=== PATIENT | female | born 1960 | race Caucasian/White ===

== ENCOUNTER 2020-09-17 08:02 | Outpatient (REF) | payer MEDICARE, SELFPAY ==
[2020-09-17 09:56] LABS: Folate 14.2 ng/mL (> or = 4.0); Vitamin B12 353 pg/mL (200-900)
[2020-09-17 10:32] LABS: Ferritin 24 ng/mL (10-250); Vitamin D 25-OH Total 20.8 ng/mL (>30)
[2020-09-18 17:32] LABS: Immunoglobulin A 291 mg/dL (70-320)
[2020-09-18 21:47] LABS: Transglutaminase Ab IgG 4 U/mL; Transglutaminase IgA 1 U/mL
[2020-09-19 05:26] LABS: Gliadin Deamidated IgA Ab 5 Units; Gliadin Deamidated IgG Ab 8 Units
[2020-09-21 12:21] LABS: Endomysial IgA Antibody Negative (Negative)
== END 2020-09-17 08:03 | disposition home or self-care (01) ==
LOC: HO.LAB 08:02
PROVIDERS: PCP Family Medicine; Visit Provider Physician Assistant
DX: K74.60 Unspecified cirrhosis of liver (principal)
CPT/HCPCS: 36415; 82306; 82607; 82728; 82746; 82784; 83516; 86255; 86256

== ENCOUNTER → 2020-09-18 14:06 | Outpatient (BNVA) | payer MEDICARE, SELFPAY | PROVIDERS: Visit Provider Physician Assistant | DX: K74.60 Unspecified cirrhosis of liver (principal) | CPT/HCPCS: 99212 ==

== ENCOUNTER → 2020-10-03 10:17 | Outpatient (BNVA) | payer MEDICARE, SELFPAY | PROVIDERS: PCP Family Medicine; Referring Provider Family Medicine; Visit Provider Physician Assistant | DX: K76.0 Fatty (change of) liver, not elsewhere classified (principal); K74.60 Unspecified cirrhosis of liver; Z79.899 Other long term (current) drug therapy; Z98.84 Bariatric surgery status | CPT/HCPCS: 99212 ==

== ENCOUNTER 2021-01-30 07:55 | Outpatient (REF) | payer OTHER, SELFPAY ==
--- NOTE | ~2021-01-30 | US_ITS ---
EXAMINATION: US ABDOMEN LIMITED WITH LIVER ELASTOGRAPHY CLINICAL INFORMATION: Fatty change of liver. COMPARISON: None. TECHNIQUE: Real-time imaging of the abdominal viscera. Noninvasive ultrasound liver fibrosis assessment is performed using Jon ElastPQ point quantification shear wave elastography (pSWE) with a C5-2 MHz transducer. Multiple elastography samples are obtained. FINDINGS: PANCREAS: Most of the pancreas is obscured by overlying gas. LIVER: The liver demonstrates normal size, contour and coarse echogenicity. No focal lesion or intrahepatic biliary duct dilatation. The right lobe measures 15.1 cm in length. The left lobe measures 8.3 cm in length. Portal flow is hepatopedal. Shear wave liver elastography median stiffness is 1.52 m/s (reference: normal median stiffness is 1.3 m/s or less). IQR/median stiffness to assess sampling precision is 0.13 (reference: good quality data set is IQR/median stiffness of 0.15 or less). GALLBLADDER: Normal. The gallbladder is physiologically distended without evidence of stones, sludge, polyps, wall thickening or pericholecystic fluid. COMMON BILE DUCT: Normal in caliber measuring 0.5 cm in diameter. RIGHT KIDNEY: There is a parapelvic right renal cyst measuring 1.4 x 1.6 x 1.2 cm. No renal calculi or focal parenchymal lesions. The kidney measures 9.8 cm in maximum dimension. FREE FLUID: None. US/US abdomen edwards w elastography IMPRESSION: 1. Coarse echogenic liver without hepatomegaly. 2. Liver elastography: Median stiffness 1.52 cACLD ruled out. REFERENCE: Society of Radiologists in Ultrasound Liver Stiffness Thresholds (2020): LIVER STIFFNESS THRESHOLDS: *Liver Stiffness equal or less than 1.3 m/s: High probability of being normal. *Liver Stiffness less than 1.7 m/s: In the absence of other known clinical signs, rules out compensated advanced chronic liver disease. *Liver Stiffness 1.7-2.1 m/s: Suggestive of compensated advanced chronic liver disease but need further test for confirmation. *Liver Stiffness over 2.1 m/s: Rules in compensated advanced chronic liver disease. *Liver Stiffness over 2.4 m/s: Suggestive of clinically significant portal hypertension. QUALITY OF DATA SET: *IQR/Median value equal or less than 0.15 implies a quality data set. *IQR/Median value over 0.15 implies a poor quality data set. SIGNIFICANT CHANGE FROM PRIOR EXAM: Significant change if liver stiffness measurement is 10% or greater from prior exam. OTHER CONSIDERATIONS: The stage of liver fibrosis may be overestimated in the setting of acute hepatitis, liver inflammation, elevated liver function tests, hepatic vascular congestion, obstructive cholestasis, non-fasting state, and infiltrative diseases such as amyloidosis and lymphoma. In some patients with NAFLD, the liver stiffness thresholds for compensated advanced chronic liver disease may be lower. In causes other than viral hepatitis and NAFLD, liver stiffness thresholds are not well established.
== END 2021-01-30 07:56 | disposition home or self-care (01) ==
LOC: HO.US 07:55
PROVIDERS: Visit Provider Physician Assistant
DX: K76.0 Fatty (change of) liver, not elsewhere classified (principal)
CPT/HCPCS: 76705; 76981

== ENCOUNTER → 2021-02-12 09:16 | Outpatient (BNVA) | payer OTHER, SELFPAY | PROVIDERS: PCP Family Medicine; Visit Provider Physician Assistant | DX: Z13.89 Encounter for screening for other disorder (principal) | CPT/HCPCS: Q3014 ==

== ENCOUNTER 2021-05-15 11:43 | Day surgery (SDC) | payer OTHER, SELFPAY ==
--- NOTE | 2021-05-14 10:40 | HO.ANESPROP2 ---
Documented by User: Chana Lr 05/14/21 10:42 HPI - Anesthesia Eval Consult details Narrative: 61yo F for Upper Endoscopy PMFSH Active Problems Active Problems: All Active Problems (Updated 02/12/21 @ 11:29 by Radha Carias PA-C) Iron deficiency (Acute) Acid reflux (Acute) HTN (hypertension) (Acute) Cirrhosis (Acute) Diabetes (Acute) Fatty liver (Acute) Past Medical History Medical History (Updated 05/14/21 @ 10:40 by Chana Lr) Acid reflux Cirrhosis Diabetes Fatty liver HTN (hypertension) Iron deficiency Family History Family History Mother Diabetes COPD (chronic obstructive pulmonary disease) Heart disease Brother Stroke Father Cancer Surgical History Surgical History H/O bariatric surgery History of cholecystectomy Social History Social History Household Members: Children Alcohol intake: former Patient Tobacco Use Status: Former Tobacco user Use of substances other than those prescribed or required for medical reasons: No Have you been hit, kicked, punched, or otherwise hurt by someone within the past year? If so, by whom?: No Are you DNR?: No Advance Directives: No Advance Directives Information Provided: Yes Current occupational status: disabled Meds Allergies Allergy/AdvReac Type Severity Reaction Status Date / Time acetaminophen [Tylenol] AdvReac Unknown nausea and Verified 02/12/21 09:17 vomiting naproxen [Aleve] AdvReac Unknown stomach Verified 02/12/21 09:17 upset Motrin Allergy Unknown swelling Uncoded 02/12/21 09:17 Home Medications Medication Instructions Recorded Confirmed Last Taken Type aspirin 81 mg tablet,delayed 81 mg PO DAILY 09/18/20 02/12/21 Unknown History release atorvastatin 20 mg tablet 20 mg PO DAILY 09/18/20 02/12/21 Unknown History chlorthalidone 25 mg tablet 25 mg PO DAILY 09/18/20 02/12/21 Unknown History fluticasone propionate 110 1 puff INHALATION BID 09/18/20 02/12/21 Unknown History mcg/actuation HFA aerosol inhaler levothyroxine 88 mcg tablet 88 mcg PO DAILY 09/18/20 02/12/21 Unknown History loratadine 10 mg tablet 10 mg PO DAILY 09/18/20 02/12/21 Unknown History losartan 100 mg tablet 100 mg PO DAILY 09/18/20 02/12/21 Unknown History metformin 1,000 mg tablet 1,000 mg PO DAILY 09/18/20 02/12/21 Unknown History sertraline 100 mg tablet 100 mg PO DAILY 09/18/20 02/12/21 Unknown History omeprazole 20 mg capsule,delayed 20 mg PO DAILY 10/03/20 02/12/21 Unknown History release albuterol sulfate 90 mcg/actuation 2 puff INHALATION Q6H PRN 02/12/21 02/12/21 Unknown History aerosol inhaler benztropine 0.5 mg tablet 0.5 mg PO BEDTIME tab 02/12/21 02/12/21 Unknown History bupropion HCl 75 mg tablet 75 mg PO .qmorning tab 02/12/21 02/12/21 Unknown History ferrous fumarate 325 mg (106 mg 325 mg PO DAILY 02/12/21 02/12/21 Unknown History iron) tablet insulin aspart U-100 100 unit/mL 5 unit SUBCUT DAILY PRN ml 02/12/21 02/12/21 Unknown History subcutaneous cartridge insulin glargine 100 unit/mL 20 unit SUBCUT QAM ml 02/12/21 02/12/21 Unknown History subcutaneous solution melatonin 5 mg capsule mg PO BEDTIME cap 02/12/21 02/12/21 Unknown History mirtazapine 45 mg tablet 45 mg PO BEDTIME 02/12/21 02/12/21 Unknown History ziprasidone HCl 20 mg capsule 20 mg PO QAM cap 02/12/21 02/12/21 Unknown History ziprasidone HCl 80 mg capsule 80 mg PO BEDTIME cap 02/12/21 02/12/21 Unknown History Exam Exam Date and Time: May 14, 2021 1040 Assessment and Plan Assessment Anesthesia Assessment: Chart Reviewed Documented by User: Kathleen Forresterjoaquim 05/15/21 14:18 [facility] Past Medical History Medical History (Updated 05/14/21 @ 10:40 by Chana Lr) Acid reflux Cirrhosis Diabetes Fatty liver HTN (hypertension) Iron deficiency Family History Family History Mother Diabetes COPD (chronic obstructive pulmonary disease) Heart disease Brother Stroke Father Cancer Surgical History Surgical History H/O bariatric surgery History of cholecystectomy Social History Social History Household Members: Children Alcohol intake: former Patient Tobacco Use Status: Former Tobacco user Use of substances other than those prescribed or required for medical reasons: No Have you been hit, kicked, punched, or otherwise hurt by someone within the past year? If so, by whom?: No Are you DNR?: No Advance Directives: No Advance Directives Information Provided: Yes Current occupational status: disabled Meds Allergies Allergy/AdvReac Type Severity Reaction Status Date / Time acetaminophen [Tylenol] AdvReac Unknown nausea and Verified 02/12/21 09:17 vomiting naproxen [Aleve] AdvReac Unknown stomach Verified 02/12/21 09:17 upset Motrin Allergy Unknown swelling Uncoded 02/12/21 09:17 Home Medications Medication Instructions Recorded Confirmed Last Taken Type aspirin 81 mg tablet,delayed 81 mg PO DAILY 09/18/20 02/12/21 Unknown History release atorvastatin 20 mg tablet 20 mg PO DAILY 09/18/20 02/12/21 Unknown History chlorthalidone 25 mg tablet 25 mg PO DAILY 09/18/20 02/12/21 Unknown History fluticasone propionate 110 1 puff INHALATION BID 09/18/20 02/12/21 Unknown History mcg/actuation HFA aerosol inhaler levothyroxine 88 mcg tablet 88 mcg PO DAILY 09/18/20 02/12/21 Unknown History loratadine 10 mg tablet 10 mg PO DAILY 09/18/20 02/12/21 Unknown History losartan 100 mg tablet 100 mg PO DAILY 09/18/20 02/12/21 Unknown History metformin 1,000 mg tablet 1,000 mg PO DAILY 09/18/20 02/12/21 Unknown History sertraline 100 mg tablet 100 mg PO DAILY 09/18/20 02/12/21 Unknown History omeprazole 20 mg capsule,delayed 20 mg PO DAILY 10/03/20 02/12/21 Unknown History release albuterol sulfate 90 mcg/actuation 2 puff INHALATION Q6H PRN 02/12/21 02/12/21 Unknown History aerosol inhaler benztropine 0.5 mg tablet 0.5 mg PO BEDTIME tab 02/12/21 02/12/21 Unknown History bupropion HCl 75 mg tablet 75 mg PO .qmorning tab 02/12/21 02/12/21 Unknown History ferrous fumarate 325 mg (106 mg 325 mg PO DAILY 02/12/21 02/12/21 Unknown History iron) tablet insulin aspart U-100 100 unit/mL 5 unit SUBCUT DAILY PRN ml 02/12/21 02/12/21 Unknown History subcutaneous cartridge insulin glargine 100 unit/mL 20 unit SUBCUT QAM ml 02/12/21 02/12/21 Unknown History subcutaneous solution melatonin 5 mg capsule mg PO BEDTIME cap 02/12/21 02/12/21 Unknown History mirtazapine 45 mg tablet 45 mg PO BEDTIME 02/12/21 02/12/21 Unknown History ziprasidone HCl 20 mg capsule 20 mg PO QAM cap 02/12/21 02/12/21 Unknown History ziprasidone HCl 80 mg capsule 80 mg PO BEDTIME cap 02/12/21 02/12/21 Unknown History Exam Airway Mallampati Class: II TM Dist: >3cm Neck ROM: Full Denture: Upper and Lower Heart: rrr Lungs: cta Assessment and Plan Assessment Anesthesia Assessment: Anesthesia Plan Discussed and Chart Reviewed Final Anesthetic Review NPO: Yes ASA Class: III Final Preanesthetic Review: No Changes in Pt Med Stat and Consent Obtained/Reviewed Patient Risk: Intermediate Procedure Risk: Intermediate Anesthetic Plan Anesthetic Plan: MAC: Disposition: Standard PACU
[2021-05-15 12:15] LABS: MANUAL DIFF FLAG NO
[2021-05-15 12:20] LABS: Basophils Percent Auto 0.5 % (0-2); Eosinophils Absolute Auto 0.5 X10*3/uL (0.0-0.4); Eosinophils Percent Auto 9.5 % (0-4); Hematocrit 36.2 % (37-47); Hemoglobin 11.4 g/dl (12.0-16.0); Imm Gran Abs Auto 0.01 X10*3/uL (0.00-0.03); Imm Gran Pct Auto 0.2 % (0.0-0.4); Lymphocytes Absolute Auto 1.4 X10*3/uL (1.2-4.9); Lymphocytes Percent Auto 25.4 % (20-40); Mean Corpuscular HGB Conc 31.5 g/dl (31.0-35.0); Mean Corpuscular Volume 79.4 fL (80-98); Mean Platelet Volume 9.7 fL (9.4-12.3); Monocytes Absolute Auto 0.3 X10*3/uL (0.1-1.2); Monocytes Percent Auto 5.8 % (2-11); Neutrophils Absolute Auto 3.2 X10*3/uL (2.0-8.3); Neutrophils Percent Auto 58.6 % (45-73); Platelet Count 148 X10*3/uL (160-400); Red Blood Count 4.56 X10*6/uL (4.20-5.50); Red Cell Distribution Width 15.3 % (11.0-16.0); White Blood Count 5.5 X10*3/uL (4.8-10.8)
[2021-05-15 12:23] LABS: Glucose, Whole Blood 110 mg/dL (60-115)
[2021-05-15 12:29] VITALS: BP 140/84; PULSE 76; RESP 18; TEMP 36.7; O2SAT 97; BMI 44.4
[2021-05-15 12:58] LABS: Alanine Aminotransferase 10 U/L (0-31); Alkaline Phosphatase 97 U/L (39-117); Anion Gap 10 (12-20); Aspartate Amino Transferase 18 U/L (5-31); Bilirubin Total 0.5 mg/dL (0.0-1.0); Blood Urea Nitrogen 16 mg/dL (9-16); Calcium 9.4 mg/dL (8.4-10.2); Carbon Dioxide 30 mmol/L (22-29); Chloride 105 mmol/L (96-108); Creatinine Clr Calc Pharmacy 51.8; Estimated Glomerular Filt Rate 47; Glucose Random 122 mg/dL (60-115); Iron 50 mcg/dL (30-160); Percent Iron Saturation 12 % (15-50); Sodium 141 mmol/L (135-145); Total Iron Binding Capacity 415 mcg/dL (228-428); Unsaturated Iron Binding 365 ug/dL
[2021-05-15] MEDS: Lactated Ringers 1,000 ML 100 ML IVCONT (13:07)
[2021-05-15 13:22] LABS: Ferritin 14 ng/mL (10-250)
--- NOTE | 2021-05-15 13:44 | MHC.SHP ---
Pre-Procedural Eval Section B Chief Complaint: reflux disease,r10.11,d64.9,e61.1,r74.01 Relevant Family History (Specify if Yes): No Relevant Social History: None Present Medications: see Short Stay Collaborative assessment Medical History: Significant History (Acid reflux Cirrhosis Diabetes Fatty liver HTN (hypertension) Iron deficiency) History of Previous Operations: Relevant previous surgery/procedure and date(s) (cholecystectomy, bariatric surgery) Allergies: Allergies Allergy/AdvReac Type Severity Reaction Status Date / Time acetaminophen [Tylenol] AdvReac Unknown nausea and Verified 02/12/21 09:17 vomiting naproxen [Aleve] AdvReac Unknown stomach Verified 02/12/21 09:17 upset Motrin Allergy Unknown swelling Uncoded 02/12/21 09:17 Review of Systems Sugical H&P ROS: Negative: Constitution, Cardiovascular, Respiratory, Neurological, Psychiatric, Hem-Onc, Allergic/Immunologic, Gastrointestinal, Genitourinary, Musculoskeletal, Integumentary, Endocrine and Eyes/Ears/Nose/Throat Exam Surgical H&P Exam: Normal: HEENT, Normal: Heart, Normal: Lungs, Normal: Extremities, Normal: Abdomen, Normal: Skin and Normal: Neurological Plan Diagnosis/Plan: Unchanged I have reviewed the history and physical and performed a pertinent physical examination on my patient. No changes have occurred unless specified.
--- NOTE | 2021-05-15 14:10 | PM.OP ---
Brief Operative Note Date of Service: 05/15/21 Pre-op diagnosis: anemia, hx of gastric sleeve Post-op diagnosis: same Procedure: see op note Surgeon: Tien Robert MD Anesthesia: MAC Was an Fruit And Vegetable Packer used for this Procedure?: No Estimated blood loss (mL): 0 Condition: stable Disposition: PACU
--- NOTE | 2021-05-15 14:10 | W.PM.OPN ---
Operative Note Operative Note Date of Service: 05/15/21 Narrative: Procedure Description: EGD FLEXIBLE TRANSORAL UPPER GASTROINTESTINAL ENDOSCOPY UPPER ENDOSCOPY Consent: Indications for the procedure and potential complications of bleeding, perforation, reaction to medications and missed diagnosis were discussed with the patient and informed consent was obtained. Instrument: Olympus GIF H 190 J mid size upper endoscope Monitoring: Vital signs and clinical assessment, continuous EKG monitoring, Pulse oximetry, Carbon Dioxide monitoring and blood pressure monitoring were done throughout the procedure. Procedure: The patient was placed in the left lateral decubitis position and pre-procedure medications were administered and a bite block was placed. The endoscope was inserted into the mouth and advanced under direct vision to the third part of duodenum. A careful inspection was made as the upper endoscope was withdrawn including a retroflexed examination of the proximal stomach; Findings and interventions are described below. Findings: Larynx:normal Esophagus: GE junction at 32 cm, diaphragm hiatus at 35 cm, no varices seen, non obstructive schatzki ring seen, 3 cm sliding hiatal hernia noted. Stomach: streaky gastric erythema at antrum. Biopsies were obtained. Grade 2 flap valve on retroflexed examination of the cardia. Stomach was elongated with slight narrowing in the distal part. Duodenum: Normal bulb and descending duodenum, bx taken Intervention: Biopsies as noted above Impression/Findings: schatzki ring hiatal hernia gastritis s/p sleeve gastrectomy PLAN: GERd precautions may benefit from PPi if not taking or increasing the dose recommend colonoscopy for anemia work up but she declines this
[2021-05-15 14:43] VITALS: BP 131/74; PULSE 92; RESP 16; TEMP 36; O2SAT 94
[2021-05-15 14:58] VITALS: BP 140/73; PULSE 83; RESP 13; O2SAT 97
--- NOTE | 2021-05-15 14:59 | P.CONAN_ITS ---
[facility] Active Problems Active Problems: All Active Problems (Updated 05/14/21 @ 10:40 by Chana herrera) Iron deficiency (Acute) Acid reflux (Acute) HTN (hypertension) (Acute) Cirrhosis (Acute) Diabetes (Acute) Fatty liver (Acute) Past Medical History Medical History (Updated 05/14/21 @ 10:40 by Chana Lr) Acid reflux Cirrhosis Diabetes Fatty liver HTN (hypertension) Iron deficiency Family History Family History Mother Diabetes COPD (chronic obstructive pulmonary disease) Heart disease Brother Stroke Father Cancer Surgical History Surgical History H/O bariatric surgery History of cholecystectomy Social History Social History Household Members: Children Alcohol intake: former Patient Tobacco Use Status: Former Tobacco user Use of substances other than those prescribed or required for medical reasons: No Have you been hit, kicked, punched, or otherwise hurt by someone within the past year? If so, by whom?: No Are you DNR?: No Advance Directives: No Advance Directives Information Provided: Yes Current occupational status: disabled Meds Allergies Allergy/AdvReac Type Severity Reaction Status Date / Time acetaminophen [Tylenol] AdvReac Unknown nausea and Verified 02/12/21 09:17 vomiting naproxen [Aleve] AdvReac Unknown stomach Verified 02/12/21 09:17 upset Motrin Allergy Unknown swelling Uncoded 02/12/21 09:17 Active Medications: Current Medications Generic Name Dose Route Start Last Admin Trade Name Freq PRN Reason Stop Dose Admin Lactated Ringer's 1,000 mls @ 100 mls/hr 05/15/21 12:15 05/15/21 13:07 Lr IVCONT 100 mls/hr .Q10H [place] Administration Home Medications Medication Instructions Recorded Confirmed Last Taken Type aspirin 81 mg tablet,delayed 81 mg PO DAILY 09/18/20 02/12/21 Unknown History release atorvastatin 20 mg tablet 20 mg PO DAILY 09/18/20 02/12/21 Unknown History chlorthalidone 25 mg tablet 25 mg PO DAILY 09/18/20 02/12/21 Unknown History fluticasone propionate 110 1 puff INHALATION BID 09/18/20 02/12/21 Unknown History mcg/actuation HFA aerosol inhaler levothyroxine 88 mcg tablet 88 mcg PO DAILY 09/18/20 02/12/21 Unknown History loratadine 10 mg tablet 10 mg PO DAILY 09/18/20 02/12/21 Unknown History losartan 100 mg tablet 100 mg PO DAILY 09/18/20 02/12/21 Unknown History metformin 1,000 mg tablet 1,000 mg PO DAILY 09/18/20 02/12/21 Unknown History sertraline 100 mg tablet 100 mg PO DAILY 09/18/20 02/12/21 Unknown History omeprazole 20 mg capsule,delayed 20 mg PO DAILY 10/03/20 02/12/21 Unknown History release albuterol sulfate 90 mcg/actuation 2 puff INHALATION Q6H PRN 02/12/21 02/12/21 Unknown History aerosol inhaler benztropine 0.5 mg tablet 0.5 mg PO BEDTIME tab 02/12/21 02/12/21 Unknown History bupropion HCl 75 mg tablet 75 mg PO .qmorning tab 02/12/21 02/12/21 Unknown History ferrous fumarate 325 mg (106 mg 325 mg PO DAILY 02/12/21 02/12/21 Unknown History iron) tablet insulin aspart U-100 100 unit/mL 5 unit SUBCUT DAILY PRN ml 02/12/21 02/12/21 Unknown History subcutaneous cartridge insulin glargine 100 unit/mL 20 unit SUBCUT QAM ml 02/12/21 02/12/21 Unknown History subcutaneous solution melatonin 5 mg capsule mg PO BEDTIME cap 02/12/21 02/12/21 Unknown History mirtazapine 45 mg tablet 45 mg PO BEDTIME 02/12/21 02/12/21 Unknown History ziprasidone HCl 20 mg capsule 20 mg PO QAM cap 02/12/21 02/12/21 Unknown History ziprasidone HCl 80 mg capsule 80 mg PO BEDTIME cap 02/12/21 02/12/21 Unknown History Exam Exam Date and Time: May 15, 2021 492 Height,Weight and Vital Signs: Height 4 ft 11 in Weight 99.79 kg Last Vital Signs Temp 98.1 F 05/15/21 12:29 Pulse 76 05/15/21 12:29 Resp 18 05/15/21 12:29 BP 140/84 H 05/15/21 12:29 Pulse Ox 97 05/15/21 12:29 Pertinent Lab Results Pertinent Lab Results: Laboratory Tests 05/15/21 05/15/21 05/15/21 11:33 11:33 12:17 WBC 5.5 RBC 4.56 Hgb 11.4 L Hct 36.2 L MCV 79.4 L MCH 25.0 L MCHC 31.5 RDW 15.3 Plt Count 148 L MPV 9.7 Immature Gran % (Auto) 0.2 Neut % (Auto) 58.6 Lymph % (Auto) 25.4 Nye % (Auto) 5.8 Eos % (Auto) 9.5 H Baso % (Auto) 0.5 Lymph # (Auto) 1.4 Nye # (Auto) 0.3 Eos # (Auto) 0.5 H Baso # (Auto) 0.0 Abs Immat Gran (auto) 0.01 Absolute Neuts (auto) 3.2 Absolute Nucleated RBC 0.000 Nucleated RBC % (auto) 0.0 Sodium 141 Potassium 4.0 Chloride 105 Carbon Dioxide 30 H Anion Gap 10 L BUN 16 Creatinine 1.17 Estim Creat Clear Calc 51.8 Estimated GFR 47 POC Glucose 110 Random Glucose 122 H Calcium 9.4 Iron 50 TIBC 415 % Saturation 12 L Unsat Iron Binding 365 Ferritin 14 Total Bilirubin 0.5 AST 18 ALT 10 Alkaline Phosphatase 97 Total Protein 7.0 Albumin 4.0 Airway Mallampati Class: II (No teeth) TM Dist: >3cm Neck ROM: Full Heart: rrr Lungs: cta Assessment and Plan Assessment Anesthesia Assessment: Anesthesia Plan Discussed and Chart Reviewed Final Anesthetic Review NPO: Yes ASA Class: III Final Preanesthetic Review: No Changes in Pt Med Stat and Consent Obtained/Reviewed Patient Risk: Intermediate Procedure Risk: Intermediate Anesthetic Plan Anesthetic Plan: MAC: Disposition: Standard PACU
[2021-05-15 15:08] VITALS: BP 138/79; PULSE 81; RESP 13; TEMP 36; O2SAT 97
== END 2021-05-15 16:16 | disposition home or self-care (01) ==
PROVIDERS: Absent Provider Physician Assistant; PCP Family Medicine; Visit Provider Internal Medicine Gastroenterology
PROC: 0DJ08ZZ Inspection of Upper Intestinal Tract, Via Natural or Artificial Opening Endoscopic (ICD-10-PCS; CPT 43235; principal; 2021-05-15 14:30)
DX: D64.9 Anemia, unspecified (principal); K21.9 Gastro-esophageal reflux disease without esophagitis; E61.1 Iron deficiency; K29.50 Unspecified chronic gastritis without bleeding; K22.2 Esophageal obstruction; K44.9 Diaphragmatic hernia without obstruction or gangrene; K74.60 Unspecified cirrhosis of liver; K76.0 Fatty (change of) liver, not elsewhere classified; Z98.84 Bariatric surgery status; I10 Essential (primary) hypertension; E11.9 Type 2 diabetes mellitus without complications; Z90.49 Acquired absence of other specified parts of digestive tract; Z87.891 Personal history of nicotine dependence; Z79.4 Long term (current) use of insulin; Z79.899 Other long term (current) drug therapy
CPT/HCPCS: 43239; 36415; 80053; 82728; 82947; 83540; 85025; 88305; 88342

== ENCOUNTER → 2021-05-30 13:12 | Outpatient (BNVA) | payer OTHER, SELFPAY | PROVIDERS: PCP Family Medicine; Visit Provider Physician Assistant ==

== ENCOUNTER → 2021-09-03 13:28 | Outpatient (BNVA) | payer OTHER, SELFPAY | PROVIDERS: PCP Family Medicine; Visit Provider Physician Assistant | CPT/HCPCS: Q3014 ==

== ENCOUNTER 2021-10-01 08:11 | Day surgery (SDC) | payer OTHER, SELFPAY ==
[2021-09-24 12:41] VITALS: BMI 44.4
--- NOTE | 2021-09-30 15:34 | P.CONAN_ITS ---
Documented by User: Chana Lr NP 09/30/21 15:37 HPI - Anesthesia Eval Consult details Narrative: 61yo F for Colonoscopy s/p EGD with MAC 05/2021 Cirrhosis with h/o low plts. Repeat DOS PMFSH Active Problems Active Problems: All Active Problems (Updated 09/24/21 @ 12:46 by Silvia Bolton RN) Encounter for screening colonoscopy (Acute) Iron deficiency (Acute) Acid reflux (Acute) HTN (hypertension) (Acute) Cirrhosis (Acute) Diabetes (Acute) Fatty liver (Acute) Past Medical History Medical History Acid reflux Asthma Bipolar disorder Cirrhosis COVID-19 vaccine series completed Depression Diabetes Elevated cholesterol Fatty liver Hepatitis C HTN (hypertension) Hypothyroid Iron deficiency Schizophrenia Sleep apnea Family History Family History Mother Diabetes COPD (chronic obstructive pulmonary disease) Heart disease Brother Stroke Father Cancer Surgical History Surgical History H/O bariatric surgery History of cholecystectomy History of esophagogastroduodenoscopy (EGD) Hx of detached retina repair Hx of excision of mass Social History Social History Household Members: Children Are you a primary palliative care specialist to a significant other at home: No Do you presently have visiting nurse or other home services: Yes ([employer]) Alcohol intake: former Patient Tobacco Use Status: Former Tobacco user Quit Date: as teenager Tobacco use type: Cigarette Use of substances other than those prescribed or required for medical reasons: No Have you been hit, kicked, punched, or otherwise hurt by someone within the past year? If so, by whom?: No Are you DNR?: No Advance Directives: No Advance Directives Information Provided: Yes (informational brochure mailed) Advance Directives on File: No Recently lost weight without trying: No Eating poorly because of decreased appetite: No Nutrition Risks: No Nutritional Risk Poor oral hygiene: No (upper full denture / no lower teeth & no lower denture) Current occupational status: disabled Meds Allergies Allergy/AdvReac Type Severity Reaction Status Date / Time ibuprofen [From Motrin] Allergy Intermediate Swelling Verified 09/24/21 12:04 acetaminophen [Tylenol] AdvReac Intermediate nausea and Verified 09/24/21 12:04 vomiting naproxen [Aleve] AdvReac Intermediate stomach Verified 09/24/21 12:04 upset Home Medications Medication Instructions Recorded Confirmed Last Taken Type aspirin 81 mg tablet,delayed 81 mg PO DAILY 09/18/20 09/24/21 09/29/21 History release atorvastatin 20 mg tablet 20 mg PO DAILY 09/18/20 09/24/21 Unknown History chlorthalidone 25 mg tablet 25 mg PO DAILY 09/18/20 09/24/21 Unknown History fluticasone propionate 110 1 puff INHALATION BID 09/18/20 09/24/21 Unknown History mcg/actuation HFA aerosol inhaler (Flovent HFA) levothyroxine 88 mcg tablet 88 mcg PO DAILY 09/18/20 09/24/21 10/01/21 History loratadine 10 mg tablet (Allergy 10 mg PO DAILY 09/18/20 09/24/21 Unknown History Relief (loratadine)) losartan 100 mg tablet 100 mg PO DAILY 09/18/20 09/24/21 10/01/21 History metformin 1,000 mg tablet 1,000 mg PO DAILY 09/18/20 09/24/21 Unknown History sertraline 100 mg tablet 100 mg PO DAILY 09/18/20 09/24/21 10/01/21 History omeprazole 20 mg capsule,delayed 20 mg PO DAILY 10/03/20 09/24/21 10/01/21 History release albuterol sulfate 90 mcg/actuation 2 puff INHALATION Q6H PRN 02/12/21 09/24/21 10/01/21 History aerosol inhaler benztropine 0.5 mg tablet 0.5 mg PO BEDTIME tab 02/12/21 09/24/21 Unknown Hist ory bupropion HCl 75 mg tablet 75 mg PO QAM tab 02/12/21 09/24/21 10/01/21 History ferrous fumarate 325 mg (106 mg 325 mg PO DAILY 02/12/21 09/24/21 Unknown History iron) tablet insulin aspart U-100 100 unit/mL 5 unit SUBCUT TIDAC ml 02/12/21 09/24/21 Unknown History subcutaneous cartridge (Novolog PenFill U-100 Insulin aspart) insulin glargine 100 unit/mL 30 unit SUBCUT QPM ml 02/12/21 09/24/21 Unknown History subcutaneous solution (Lantus U-100 Insulin) melatonin 5 mg capsule 5 mg PO BEDTIME cap 02/12/21 09/24/21 Unknown History mirtazapine 45 mg tablet 45 mg PO BEDTIME 02/12/21 09/24/21 Unknown History ziprasidone HCl 20 mg capsule 20 mg PO BEDTIME cap 02/12/21 09/24/21 Unknown History ziprasidone HCl 80 mg capsule 80 mg PO BEDTIME cap 02/12/21 09/24/21 Unknown History Exam Exam Date and Time: September 30, 2021 1534 Height,Weight and Vital Signs: Height 4 ft 11 in Weight 99.79 kg Pertinent Lab Results Pertinent Lab Results: Laboratory Tests 05/15/21 05/15/21 11:33 11:33 WBC 5.5 Hgb 11.4 L Hct 36.2 L Plt Count 148 L Sodium 141 Potassium 4.0 Chloride 105 Carbon Dioxide 30 H BUN 16 Creatinine 1.17 Assessment and Plan Assessment Anesthesia Assessment: Chart Reviewed Documented by User: Melinda Balderas MD 10/01/21 10:29 [facility] Past Medical History Medical History Acid reflux Asthma Bipolar disorder Cirrhosis COVID-19 vaccine series completed Depression Diabetes Elevated cholesterol Fatty liver Hepatitis C HTN (hypertension) Hypothyroid Iron deficiency Schizophrenia Sleep apnea Functional capacity: independent ambulation Patient : No Family History Family History Mother Diabetes COPD (chronic obstructive pulmonary disease) Heart disease Brother Stroke Father Cancer Family history of problems with anesthesia: No Surgical History Surgical History H/O bariatric surgery History of cholecystectomy History of esophagogastroduodenoscopy (EGD) Hx of detached retina repair Hx of excision of mass History of Problems with Anesthesia: No Social History Social History Household Members: Children Are you a primary palliative care specialist to a significant other at home: No Do you presently have visiting nurse or other home services: Yes ([employer]) Alcohol intake: former Patient Tobacco Use Status: Former Tobacco user Quit Date: as teenager Tobacco use type: Cigarette Use of substances other than those prescribed or required for medical reasons: No Have you been hit, kicked, punched, or otherwise hurt by someone within the past year? If so, by whom?: No Are you DNR?: No Advance Directives: No Advance Directives Information Provided: Yes (informational brochure mailed) Advance Directives on File: No Recently lost weight without trying: No Eating poorly because of decreased appetite: No Nutrition Risks: No Nutritional Risk Poor oral hygiene: No (upper full denture / no lower teeth & no lower denture) Current occupational status: disabled Meds Allergies Allergy/AdvReac Type Severity Reaction Status Date / Time ibuprofen [From Motrin] Allergy Intermediate Swelling Verified 09/24/21 12:04 acetaminophen [Tylenol] AdvReac Intermediate nausea and Verified 09/24/21 12:04 vomiting naproxen [Aleve] AdvReac Intermediate stomach Verified 09/24/21 12:04 upset Home Medications Medication Instructions Recorded Confirmed Last Taken Type aspirin 81 mg tablet,delayed 81 mg PO DAILY 09/18/20 09/24/21 09/29/21 History release atorvastatin 20 mg tablet 20 mg PO DAILY 09/18/20 09/24/21 Unknown History chlorthalidone 25 mg tablet 25 mg PO DAILY 09/18/20 09/24/21 Unknown History fluticasone propionate 110 1 puff INHALATION BID 09/18/20 09/24/21 Unknown History mcg/actuation HFA aerosol inhaler (Flovent HFA) levothyroxine 88 mcg tablet 88 mcg PO DAILY 09/18/20 09/24/21 10/01/21 History loratadine 10 mg tablet (Allergy 10 mg PO DAILY 09/18/20 09/24/21 Unknown History Relief (loratadine)) losartan 100 mg tablet 100 mg PO DAILY 09/18/20 09/24/21 10/01/21 History metformin 1,000 mg tablet 1,000 mg PO DAILY 09/18/20 09/24/21 Unknown History sertraline 100 mg tablet 100 mg PO DAILY 09/18/20 09/24/21 10/01/21 History omeprazole 20 mg capsule,delayed 20 mg PO DAILY 10/03/20 09/24/21 10/01/21 History release albuterol sulfate 90 mcg/actuation 2 puff INHALATION Q6H PRN 02/12/21 09/24/21 10/01/21 History aerosol inhaler benztropine 0.5 mg tablet 0.5 mg PO BEDTIME tab 02/12/21 09/24/21 Unknown History bupropion HCl 75 mg tablet 75 mg PO QAM tab 02/12/21 09/24/21 10/01/21 History ferrous fumarate 325 mg (106 mg 325 mg PO DAILY 02/12/21 09/24/21 Unknown History iron) tablet insulin aspart U-100 100 unit/mL 5 unit SUBCUT TIDAC ml 02/12/21 09/24/21 Unknown History subcutaneous cartridge (Novolog PenFill U-100 Insulin aspart) insulin glargine 100 unit/mL 30 unit SUBCUT QPM ml 02/12/21 09/24/21 Unknown History subcutaneous solution (Lantus U-100 Insulin) melatonin 5 mg capsule 5 mg PO BEDTIME cap 02/12/21 09/24/21 Unknown History mirtazapine 45 mg tablet 45 mg PO BEDTIME 02/12/21 09/24/21 Unknown History ziprasidone HCl 20 mg capsule 20 mg PO BEDTIME cap 02/12/21 09/24/21 Unknown History ziprasidone HCl 80 mg capsule 80 mg PO BEDTIME cap 02/12/21 09/24/21 Unknown History Assessment and Plan Final Anesthetic Review Family History of Problems with Anesthesia: No History of Problems with Anesthesia: No ASA Class: III Final Preanesthetic Review: No Changes in Pt Med Stat Patient Risk: Low Procedure Risk: Low Anesthetic Plan Anesthetic Plan: MAC: Disposition: Standard PACU
[2021-10-01 08:45] VITALS: BP 158/84; PULSE 72; RESP 18; TEMP 36.6
[2021-10-01 08:57] LABS: Hematocrit 38.5 % (37.0-47.0); Hemoglobin 12.1 g/dl (12.0-16.0); Mean Corpuscular HGB Conc 31.4 g/dl (31.0-35.0); Mean Corpuscular Hemoglobin 24.8 pg (27.0-33.0); Mean Corpuscular Volume 79.1 fL (80.0-98.0); Platelet Count 142 X10*3/uL (160-400); Red Blood Count 4.87 X10*6/uL (4.20-5.50); Red Cell Distribution Width 15.9 % (11.0-16.0); White Blood Count 4.7 X10*3/uL (4.8-10.8)
[2021-10-01 08:58] LABS: Glucose, Whole Blood 88 mg/dL (60-115)
[2021-10-01] MEDS: Lactated Ringers 1,000 ML 100 ML IVCONT (09:10)
[2021-10-01] MEDS: Sodium Phosphate,Mono-Dibasic 133 ML ENEMA PR ×2 (09:12→09:56)
--- NOTE | 2021-10-01 10:16 | MHC.SHP ---
Pre-Procedural Eval Section A Date of Service: 10/01/21 Section B Chief Complaint: iron deficiency Relevant Family History (Specify if Yes): No Relevant Social History: None Present Medications: see Short Stay Collaborative assessment Medical History: Significant History (Acid reflux Asthma Bipolar disorder Cirrhosis COVID-19 vaccine series completed Depression Diabetes Elevated cholesterol Fatty liver Hepatitis C HTN (hypertension) Hypothyroid Iron deficiency Schizophrenia Sleep apnea) History of Previous Operations: Relevant previous surgery/procedure and date(s) (H/O bariatric surgery History of cholecystectomy History of esophagogastroduodenoscopy (EGD) Hx of detached retina repair Hx of excision of mass) Allergies: Allergies Allergy/AdvReac Type Severity Reaction Status Date / Time ibuprofen [From Motrin] Allergy Intermediate Swelling Verified 09/24/21 12:04 acetaminophen [Tylenol] AdvReac Intermediate nausea and Verified 09/24/21 12:04 vomiting naproxen [Aleve] AdvReac Intermediate stomach Verified 09/24/21 12:04 upset Review of Systems Sugical H&P ROS: Negative: Constitution, Cardiovascular, Respiratory, Neurological, Psychiatric, Hem-Onc, Allergic/Immunologic, Gastrointestinal, Genitourinary, Musculoskeletal, Integumentary, Endocrine and Eyes/Ears/Nose/Throat Exam Surgical H&P Exam: Normal: HEENT, Normal: Heart, Normal: Lungs, Normal: Extremities, Normal: Abdomen, Normal: Skin and Normal: Neurological Plan Diagnosis/Plan: Unchanged I have reviewed the history and physical and performed a pertinent physical examination on my patient. No changes have occurred unless specified.
--- NOTE | 2021-10-01 10:18 | PM.OP ---
Brief Operative Note Date of Service: 10/01/21 Pre-op diagnosis: anemia Post-op diagnosis: same Procedure: see op note Surgeon: Tien Robert MD Anesthesia: MAC Was an Manager Brand used for this Procedure?: No Estimated blood loss (mL): 0 Condition: stable Disposition: PACU
--- NOTE | 2021-10-01 10:18 | W.PM.OPN ---
Operative Note Operative Note Date of Service: 10/01/21 Narrative: Operative Information Procedure Description: Colonoscopy COLONOSCOPY Instrument: Olympus variable stiffness adult scope 190L Colonoscopy Monitoring: Vital signs and clinical assessment, continuous EKG monitoring, Pulse oximetry, Carbon Dioxide monitoring and blood pressure monitoring were done throughout the procedure. Colon withdrawal time was 28 minutes. Procedure: The patient was placed in the left lateral decubitis position and pre-procedure medications were administered. After a digital rectal examination of the ano-rectum, the video colonoscope was inserted into the rectum and advanced through the colon to the cecum/TI. The colonoscope was slowly withdrawn in a retrograde panoramic fashion and the colon mucosa was carefully examined including a retroflexed view of the rectum. Findings and interventions are described below. Procedure Difficulty: difficult Findings: Terminal Ileum-unable to intubate due to looping Cecum:normal Ascending Colon: normal Transverse Colon -normal Descending Colon:normal Sigmoid Colon: normal Rectum: Retroflexion with moderate sized internal hemorrhoids, grade I Anorectum - normal Colon preparation: [place] Bowel Preparation Scale Right colon; 2 Transverse colon: 1 Left colon; 1 (0 = Unprepared colon segment with mucosa not seen due to solid stool that cannot be cleared. 1 = Portion of mucosa of the colon segment seen, but other areas of the colon segment not well seen due to staining, residual stool and/or opaque liquid. 2 = Minor amount of residual staining, small fragments of stool and/or opaque liquid, but mucosa of colon segment seen well. 3 = Entire mucosa of colon segment seen well with no residual staining, small fragments of stool or opaque liquid) Impression and Post Procedure Diagnosis: internal hemorrhoids poor prep within limitations of prep no large mass lesions seen, but could have missed flat polyps or smaller lesions Plan: High fiber diet leaflet Avoid straining at stool, epsom salts and sitz bath, anusol supps or cream Repeat Colonoscopy in 6-12 months years or earlier if clinically indicated, ensure compliance with prep next time, may need 2 d of clears Above findings were reviewed with the patient and relevant handouts were provided if indicated.
[2021-10-01 11:26] VITALS: BP 115/72; PULSE 64; RESP 18; TEMP 36.3; O2SAT 100
[2021-10-01 11:51] VITALS: BP 174/92; PULSE 68; RESP 18; TEMP 36.3; O2SAT 98
--- NOTE | 2021-10-01 14:47 | HO.POSTANES ---
Post Anesthesia Evaluation Post Anesthesia Evaluation Vital Signs: Vital Signs Temp Pulse Resp BP Pulse Ox 10/01/21 11:51 97.4 F 68 18 174/92 H 98 10/01/21 11:26 97.4 F 64 18 115/72 100 10/01/21 08:45 98 F 72 18 158/84 H Anesthesia: Monitored Mental Status: Awake Pain Control: Satisfactory Nausea/Vomiting: None Hydration: Adequate Anesthesia-Related Issues: No Anes. Related Issues
== END 2021-10-01 12:26 | disposition home or self-care (01) ==
PROVIDERS: Nurse Practitioner; PCP Family Medicine; Visit Provider Internal Medicine Gastroenterology
PROC: 0DJD8ZZ Inspection of Lower Intestinal Tract, Via Natural or Artificial Opening Endoscopic (ICD-10-PCS; CPT 45378; principal; 2021-10-01 10:20)
DX: D50.9 Iron deficiency anemia, unspecified (principal); Z72.89 Other problems related to lifestyle; K64.0 First degree hemorrhoids; K74.60 Unspecified cirrhosis of liver; K76.0 Fatty (change of) liver, not elsewhere classified; K21.9 Gastro-esophageal reflux disease without esophagitis; G47.33 Obstructive sleep apnea (adult) (pediatric); E11.9 Type 2 diabetes mellitus without complications; Z79.4 Long term (current) use of insulin; Z79.82 Long term (current) use of aspirin; Z79.899 Other long term (current) drug therapy; Z88.8 Allergy status to other drugs, medicaments and biological substances; Z98.84 Bariatric surgery status; Z90.49 Acquired absence of other specified parts of digestive tract; Z87.891 Personal history of nicotine dependence
CPT/HCPCS: 45378; 36415; 82947; 85027

== ENCOUNTER → 2022-06-30 07:24 | Outpatient (BNVA) | payer OTHER, SELFPAY | PROVIDERS: PCP Family Medicine; Visit Provider Physician Assistant | DX: Z12.11 Encounter for screening for malignant neoplasm of colon (principal); K21.9 Gastro-esophageal reflux disease without esophagitis; K74.60 Unspecified cirrhosis of liver; K76.0 Fatty (change of) liver, not elsewhere classified; J45.909 Unspecified asthma, uncomplicated | CPT/HCPCS: 99212 ==

== ENCOUNTER 2022-07-18 11:15 | Outpatient (REF) | payer OTHER, SELFPAY ==
--- NOTE | ~2022-07-18 | US_ITS ---
EXAMINATION: US ABDOMEN LIMITED CLINICAL INFORMATION: Unspecified cirrhosis of liver. COMPARISON: Ultrasound abdomen limited 01/30/2021. Ultrasound abdomen complete 05/31/2020 TECHNIQUE: Real-time imaging of the right upper quadrant abdominal viscera. FINDINGS: PANCREAS: Not visualized due to bowel gas LIVER: Liver echotexture is increased and heterogeneous suggestive of hepatocellular disease. The contour of the liver is irregular or scalloped suggestive of cirrhosis.. No focal hepatic lesion. There is no intrahepatic biliary duct dilatation seen. GALLBLADDER: Surgically absent. COMMON BILE DUCT: Normal in caliber measuring 0.5 cm in diameter. RIGHT KIDNEY: There are peripelvic cysts. Largest cyst measures 1.9 x 1.1 x 1.8 cm in the lower pole. No hydronephrosis or renal calculi. The kidney measures 10.6 cm in maximum dimension. FREE FLUID: None. US/US abdomen limited IMPRESSION: Cirrhotic-appearing liver. No focal liver lesion. Right renal cysts. Nonvisualization of the pancreas.
[2022-07-18 11:46] LABS: MANUAL DIFF FLAG NO
[2022-07-18 12:06] LABS: Basophils Percent Auto 0.2 % (0-2); Eosinophils Absolute Auto 0.3 X10*3/uL (0.0-0.4); Eosinophils Percent Auto 6.3 % (0-4); Hematocrit 34.3 % (37.0-47.0); Hemoglobin 10.8 g/dl (12.0-16.0); Imm Gran Abs Auto 0.01 X10*3/uL (0.00-0.03); Imm Gran Pct Auto 0.2 % (0.0-0.4); Lymphocytes Absolute Auto 1.1 X10*3/uL (1.2-4.9); Lymphocytes Percent Auto 24.3 % (20-40); Mean Corpuscular HGB Conc 31.5 g/dl (31.0-35.0); Mean Corpuscular Hemoglobin 24.4 pg (27.0-33.0); Mean Corpuscular Volume 77.4 fL (80.0-98.0); Mean Platelet Volume 9.2 fL (9.4-12.3); Monocytes Absolute Auto 0.3 X10*3/uL (0.1-1.2); Monocytes Percent Auto 7.2 % (2-11); Neutrophils Absolute Auto 2.7 x10*3/uL (2.0-8.3); Neutrophils Percent Auto 61.8 % (45-73); Platelet Count 124 X10*3/uL (160-400); Red Blood Count 4.43 X10*6/uL (4.20-5.50); Red Cell Distribution Width 16.6 % (11.0-16.0); White Blood Count 4.3 X10*3/uL (4.8-10.8)
[2022-07-18 12:50] LABS: Alanine Aminotransferase 10 U/L (0-31); Albumin Level 3.9 g/dL (3.5-5.0); Alkaline Phosphatase 102 U/L (39-117); Anion Gap 14 (12-20); Aspartate Amino Transferase 16 U/L (5-31); Bilirubin Total 0.5 mg/dL (0.0-1.0); Blood Urea Nitrogen 20 mg/dL (9-16); Carbon Dioxide 22 mmol/L (22-29); Chloride 109 mmol/L (96-108); Estimated Glomerular Filt Rate 37; Glucose Random 109 mg/dL (60-115); Potassium 4.4 mmol/L (3.3-5.1); Sodium 141 mmol/L (135-145); Total Protein 7.2 g/dL (6.5-8.0)
== END 2022-07-18 11:16 | disposition home or self-care (01) ==
LOC: HO.US 11:15
PROVIDERS: Visit Provider Physician Assistant
DX: K74.60 Unspecified cirrhosis of liver (principal); K76.0 Fatty (change of) liver, not elsewhere classified
CPT/HCPCS: 36415; 76705; 80053; 85025

== ENCOUNTER 2022-10-30 09:27 | Day surgery (SDC) | payer OTHER, SELFPAY ==
[2022-10-24 16:11] VITALS: BMI 39.7
--- NOTE | 2022-10-29 12:27 | HO.ANESPROP2 ---
Documented by User: Chana Lr NP 10/29/22 12:28 HPI - Anesthesia Eval Consult details Narrative: 62yo F for Colonoscopy s/p colo 09/2021 with TIVA PMFSH Active Problems Active Problems: All Active Problems (Updated 06/30/22 @ 08:18 by Radha Carias PA-C) Asthma (Acute) Encounter for screening colonoscopy (Acute) Iron deficiency (Acute) Acid reflux (Acute) HTN (hypertension) (Acute) Cirrhosis (Acute) Diabetes (Acute) Fatty liver (Acute) Past Medical History Medical History Acid reflux Asthma Bipolar disorder Cirrhosis COVID-19 vaccine series completed Depression Diabetes Elevated cholesterol Fatty liver Hepatitis C HTN (hypertension) Hypothyroid Iron deficiency Schizophrenia Sleep apnea Family History Family History Mother Diabetes COPD (chronic obstructive pulmonary disease) Heart disease Brother Stroke Father Cancer Family history of problems with anesthesia: No Surgical History Surgical History H/O bariatric surgery History of cholecystectomy History of esophagogastroduodenoscopy (EGD) Hx of colonoscopy Hx of detached retina repair Hx of excision of mass History of Problems with Anesthesia: No Social History Social History Household Members: Children Are you a primary behavioral health care manager to a significant other at home: No Do you presently have visiting nurse or other home services: Yes ([employer]) Alcohol intake: former Patient Tobacco Use Status: Former Tobacco user Quit Date: as teenager Tobacco use type: Cigarette Have you been hit, kicked, punched, or otherwise hurt by someone within the past year? If so, by whom?: No Are you DNR?: No Advance Directives: No Advance Directives Information Provided: Yes (Mailed prior w/ instructions) Advance Directives on File: No Recently lost weight without trying: No Poor oral hygiene: No (Full Upper Dentures, No Lower teeth or Dentures) Current occupational status: disabled Meds Allergies Allergy/AdvReac Type Severity Reaction Status Date / Time ibuprofen [From Motrin] Allergy Intermediate Swelling Verified 10/24/22 15:45 acetaminophen [Tylenol] AdvReac Intermediate nausea and Verified 10/24/22 15:45 vomiting naproxen [Aleve] AdvReac Intermediate stomach Verified 10/24/22 15:45 upset Home Medications Medication Instructions Recorded Confirmed Last Taken Type aspirin 81 mg tablet,delayed 81 mg PO DAILY 09/18/20 10/24/22 09/29/21 History release atorvastatin 20 mg tablet 20 mg PO DAILY 09/18/20 10/24/22 Unknown History chlorthalidone 25 mg tablet 25 mg PO DAILY 09/18/20 10/24/22 Unknown History fluticasone propionate 110 1 puff inhalation BID 09/18/20 10/24/22 Unknown History mcg/actuation HFA aerosol inhaler (Flovent HFA) loratadine 10 mg tablet (Allergy 10 mg PO DAILY 09/18/20 10/24/22 Unknown History Relief (loratadine)) losartan 100 mg tablet 100 mg PO DAILY 09/18/20 10/24/22 10/01/21 History metformin 1,000 mg tablet 1,000 mg PO DAILY 09/18/20 10/24/22 Unknown History sertraline 100 mg tablet 100 mg PO DAILY 09/18/20 10/24/22 10/01/21 History omeprazole 20 mg capsule,delayed 20 mg PO DAILY 10/03/20 10/24/22 10/01/21 History release albuterol sulfate 90 mcg/actuation 2 puff inhalation Q6H PRN Wheezing 02/12/21 10/24/22 10/01/21 History aerosol inhaler benztropine 0.5 mg tablet 0.5 mg PO BEDTIME 02/12/21 10/24/22 Unknown History bupropion HCl 75 mg tablet 75 mg PO QAM 02/12/21 10/24/22 10/01/21 History ferrous fumarate 325 mg (106 mg 325 mg PO DAILY 02/12/21 10/24/22 Unknown History iron) tablet insulin aspart U-100 100 unit/mL 5 unit subcut TIDAC 02/12/21 10/24/22 Unknown History subcutaneous cartridge (Novolog PenFill U-100 Insulin aspart) insulin glargine 100 unit/mL 30 unit subcut QPM 02/12/21 10/24/22 Unknown History subcutaneous solution (Lantus U-100 Insulin) melatonin 5 mg capsule 5 mg PO BEDTIME 02/12/21 10/24/22 Unknown History mirtazapine 45 mg tablet 45 mg PO BEDTIME 02/12/21 10/24/22 Unknown History ziprasidone HCl 20 mg capsule 20 mg PO BEDTIME 02/12/21 10/24/22 Unknown History ziprasidone HCl 80 mg capsule 80 mg PO BEDTIME 02/12/21 10/24/22 Unknown History levothyroxine 100 mcg tablet 100 mcg PO DAILY 06/30/22 10/24/22 Unknown History Exam Exam Date and Time: October 29, 2022 1227 Height,Weight and Vital Signs: Height 4 ft 11 in Weight 89.358 kg Pertinent Lab Results Pertinent Lab Results: Laboratory Tests 07/18/22 07/18/22 11:45 11:45 WBC 4.3 L Hgb 10.8 L Hct 34.3 L Plt Count 124 L Sodium 141 Potassium 4.4 Chloride 109 H Carbon Dioxide 22 BUN 20 H Creatinine 1.42 H Narrative Narrative: US abdomen limited 06/2022 IMPRESSION: Cirrhotic-appearing liver. No focal liver lesion. Right renal cysts. Nonvisualization of the pancreas. Assessment and Plan Assessment Anesthesia Assessment: Chart Reviewed Final Anesthetic Review Family History of Problems with Anesthesia: No History of Problems with Anesthesia: No Documented by User: Laura Abad MD 10/30/22 11:19 PMFSH Past Medical History Medical History Acid reflux Asthma Bipolar disorder Cirrhosis COVID-19 vaccine series completed Depression Diabetes Elevated cholesterol Fatty liver Hepatitis C HTN (hypertension) Hypothyroid Iron deficiency Schizophrenia Sleep apnea Family History Family History Mother Diabetes COPD (chronic obstructive pulmonary disease) Heart disease Brother Stroke Father Cancer Surgical History Surgical History H/O bariatric surgery History of cholecystectomy History of esophagogastroduodenoscopy (EGD) Hx of colonoscopy Hx of detached retina repair Hx of excision of mass Social History Social History Household Members: Children Are you a primary behavioral health care manager to a significant other at home: No Do you presently have visiting nurse or other home services: Yes ([employer]) Alcohol intake: former Patient Tobacco Use Status: Former Tobacco user Quit Date: as teenager Tobacco use type: Cigarette Have you been hit, kicked, punched, or otherwise hurt by someone within the past year? If so, by whom?: No Are you DNR?: No Advance Directives: No Advance Directives Information Provided: Yes (Mailed prior w/ instructions) Advance Directives on File: No Recently lost weight without trying: No Poor oral hygiene: No (Full Upper Dentures, No Lower teeth or Dentures) Current occupational status: disabled Meds Allergies Allergy/AdvReac Type Severity Reaction Status Date / Time ibuprofen [From Motrin] Allergy Intermediate Swelling Verified 10/24/22 15:45 acetaminophen [Tylenol] AdvReac Intermediate nausea and Verified 10/24/22 15:45 vomiting naproxen [Aleve] AdvReac Intermediate stomach Verified 10/24/22 15:45 upset Home Medications Medication Instructions Recorded Confirmed Last Taken Type aspirin 81 mg tablet,delayed 81 mg PO DAILY 09/18/20 10/24/22 09/29/21 History release atorvastatin 20 mg tablet 20 mg PO DAILY 09/18/20 10/24/22 Unknown History chlorthalidone 25 mg tablet 25 mg PO DAILY 09/18/20 10/24/22 Unknown History fluticasone propionate 110 1 puff inhalation BID 09/18/20 10/24/22 Unknown History mcg/actuation HFA aerosol inhaler (Flovent HFA) loratadine 10 mg tablet (Allergy 10 mg PO DAILY 09/18/20 10/24/22 Unknown History Relief (loratadine)) losartan 100 mg tablet 100 mg PO DAILY 09/18/20 10/24/22 10/01/21 History metformin 1,000 mg tablet 1,000 mg PO DAILY 09/18/20 10/24/22 Unknown History sertraline 100 mg tablet 100 mg PO DAILY 09/18/20 10/24/22 10/01/21 History omeprazole 20 mg capsule,delayed 20 mg PO DAILY 10/03/20 10/24/22 10/01/21 History release albuterol sulfate 90 mcg/actuation 2 puff inhalation Q6H PRN Wheezing 02/12/21 10/24/22 10/01/21 History aerosol inhaler benztropine 0.5 mg tablet 0.5 mg PO BEDTIME 02/12/21 10/24/22 Unknown History bupropion HCl 75 mg tablet 75 mg PO QAM 02/12/21 10/24/22 10/01/21 History ferrous fumarate 325 mg (106 mg 325 mg PO DAILY 02/12/21 10/24/22 Unknown History iron) tablet insulin aspart U-100 100 unit/mL 5 unit subcut TIDAC 02/12/21 10/24/22 Unknown History subcutaneous cartridge (Novolog PenFill U-100 Insulin aspart) insulin glargine 100 unit/mL 30 unit subcut QPM 02/12/21 10/24/22 Unknown History subcutaneous solution (Lantus U-100 Insulin) melatonin 5 mg capsule 5 mg PO BEDTIME 02/12/21 10/24/22 Unknown History mirtazapine 45 mg tablet 45 mg PO BEDTIME 02/12/21 10/24/22 Unknown History ziprasidone HCl 20 mg capsule 20 mg PO BEDTIME 02/12/21 10/24/22 Unknown History ziprasidone HCl 80 mg capsule 80 mg PO BEDTIME 02/12/21 10/24/22 Unknown History levothyroxine 100 mcg tablet 100 mcg PO DAILY 06/30/22 10/24/22 Unknown History Exam Airway Mallampati Class: III TM Dist: >3cm Neck ROM: Full Denture: Upper Loose/Missing/Broken Teeth: Yes, Upper and Lower Heart: RRR Lungs: CTA Assessment and Plan Assessment Anesthesia Assessment: Anesthesia Plan Discussed Final Anesthetic Review ASA Class: III Final Preanesthetic Review: Meds/Allgs Chart Reviewed, Consent Obtained/Reviewed and Anes Risks/Benef Reviewed Patient Risk: Intermediate Procedure Risk: Low Anesthetic Plan Anesthetic Plan: MAC: Disposition: Standard PACU
[2022-10-30 09:55] VITALS: BP 138/76; PULSE 74; RESP 16; TEMP 35.6; O2SAT 95
[2022-10-30 10:13] LABS: Glucose, Whole Blood 136 mg/dL (60-115)
[2022-10-30] MEDS: Lactated Ringers 1,000 ML 100 ML IVCONT (10:15)
--- NOTE | 2022-10-30 10:29 | MHC.SHP ---
Pre-Procedural Eval Section A Date of Service: 10/30/22 Section B Chief Complaint: screening Relevant Family History (Specify if Yes): No Relevant Social History: None Present Medications: see Short Stay Collaborative assessment Medical History: Significant History (Acid reflux Asthma Bipolar disorder Cirrhosis COVID-19 vaccine series completed Depression Diabetes Elevated cholesterol Fatty liver Hepatitis C HTN (hypertension) Hypothyroid Iron deficiency Schizophrenia Sleep apnea) History of Previous Operations: Relevant previous surgery/procedure and date(s) (H/O bariatric surgery History of cholecystectomy History of esophagogastroduodenoscopy (EGD) Hx of colonoscopy Hx of detached retina repair Hx of excision of mass) Allergies: Allergies Allergy/AdvReac Type Severity Reaction Status Date / Time ibuprofen [From Motrin] Allergy Intermediate Swelling Verified 10/24/22 15:45 acetaminophen [Tylenol] AdvReac Intermediate nausea and Verified 10/24/22 15:45 vomiting naproxen [Aleve] AdvReac Intermediate stomach Verified 10/24/22 15:45 upset Review of Systems Sugical H&P ROS: Negative: Constitution, Cardiovascular, Respiratory, Neurological, Psychiatric, Hem-Onc, Allergic/Immunologic, Gastrointestinal, Genitourinary, Musculoskeletal, Integumentary, Endocrine and Eyes/Ears/Nose/Throat Exam Surgical H&P Exam: Normal: HEENT, Normal: Heart, Normal: Lungs, Normal: Extremities, Normal: Abdomen, Normal: Skin and Normal: Neurological Plan Diagnosis/Plan: Unchanged I have reviewed the history and physical and performed a pertinent physical examination on my patient. No changes have occurred unless specified.
--- NOTE | 2022-10-30 11:06 | W.PM.OPN ---
Operative Note Operative Note Date of Service: 10/30/22 Narrative: Operative Information Procedure Description: Colonoscopy Indication: screening Anesthesia: MAC COLONOSCOPY Instrument: Olympus variable stiffness Adult scope 190L Colonoscopy Monitoring: Vital signs and clinical assessment, continuous EKG monitoring, Pulse oximetry, Carbon Dioxide monitoring and blood pressure monitoring were done throughout the procedure. Colon withdrawal time was 12 minutes. Procedure: The patient was placed in the left lateral decubitis position and pre-procedure medications were administered. After a digital rectal examination of the ano-rectum, the video colonoscope was inserted into the rectum and advanced through the colon to the cecum/TI. The colonoscope was slowly withdrawn in a retrograde panoramic fashion and the colon mucosa was carefully examined including a retroflexed view of the rectum. Findings and interventions are described below. Procedure Difficulty: moderate Findings: Terminal Ileum-normal Cecum:normal Ascending Colon: normal Transverse Colon -normal Descending Colon:normal Sigmoid Colon: normal Rectum: Retroflexion with small internal hemorrhoids, grade I Anorectum - normal Colon preparation: [place] Bowel Preparation Scale Right colon; 2 Transverse colon: 1-2 Left colon; 1-2 (0 = Unprepared colon segment with mucosa not seen due to solid stool that cannot be cleared. 1 = Portion of mucosa of the colon segment seen, but other areas of the colon segment not well seen due to staining, residual stool and/or opaque liquid. 2 = Minor amount of residual staining, small fragments of stool and/or opaque liquid, but mucosa of colon segment seen well. 3 = Entire mucosa of colon segment seen well with no residual staining, small fragments of stool or opaque liquid) Impression and Post Procedure Diagnosis: internal hemorrhoids Plan: High fiber diet leaflet Avoid straining at stool, epsom salts and sitz bath, anusol supps or cream Repeat Colonoscopy in 5 years due to fair left sided prep or earlier if clinically indicated Above findings were reviewed with the patient and relevant handouts were provided if indicated.
[2022-10-30 11:49] VITALS: BP 121/67; PULSE 72; RESP 20; TEMP 36.7; O2SAT 99
[2022-10-30 12:03] VITALS: BP 144/79; PULSE 64; RESP 18; TEMP 36.1; O2SAT 100
== END 2022-10-30 12:36 | disposition home or self-care (01) ==
PROVIDERS: PCP Family Medicine; Visit Provider Internal Medicine Gastroenterology
PROC: 0DJD8ZZ Inspection of Lower Intestinal Tract, Via Natural or Artificial Opening Endoscopic (ICD-10-PCS; CPT 45378; principal; 2022-10-30 11:10)
DX: Z12.11 Encounter for screening for malignant neoplasm of colon (principal); K64.0 First degree hemorrhoids; K74.60 Unspecified cirrhosis of liver; K76.0 Fatty (change of) liver, not elsewhere classified; G47.33 Obstructive sleep apnea (adult) (pediatric); K21.9 Gastro-esophageal reflux disease without esophagitis; J45.909 Unspecified asthma, uncomplicated; F31.9 Bipolar disorder, unspecified; F20.9 Schizophrenia, unspecified; I10 Essential (primary) hypertension; E61.1 Iron deficiency; E03.9 Hypothyroidism, unspecified; E11.9 Type 2 diabetes mellitus without complications; Z79.4 Long term (current) use of insulin; Z98.84 Bariatric surgery status; Z90.49 Acquired absence of other specified parts of digestive tract; Z88.8 Allergy status to other drugs, medicaments and biological substances; Z87.891 Personal history of nicotine dependence
CPT/HCPCS: G0121; 82947

== ENCOUNTER 2023-03-30 07:47 | Outpatient (REF) | payer OTHER, SELFPAY ==
--- NOTE | ~2023-03-30 | US_ITS ---
EXAMINATION: US ABDOMEN COMPLETE CLINICAL INFORMATION: Unspecified cirrhosis of liver. COMPARISON: Limited abdominal ultrasound 07/18/2022. Ultrasound abdomen complete 05/31/2020. TECHNIQUE: Real-time imaging of the abdominal viscera. FINDINGS: PANCREAS: Not well visualized due to bowel gas ABDOMINAL AORTA: The proximal, mid, and distal segments are normal in caliber. INFERIOR VENA CAVA: Visualized portions are normal. LIVER: The liver echotexture is increased and heterogeneous suggestive of hepatocellular disease. The contour of the liver is irregular or scalloped suggestive of cirrhosis. No focal liver lesion. No biliary duct dilatation. GALLBLADDER: Surgically absent. COMMON BILE DUCT: Normal in caliber measuring 0.6 cm in diameter. RIGHT KIDNEY: Peripelvic cysts, largest measuring 2 cm in the midpole. No imaging follow-up recommended. No hydronephrosis or renal calculi. The kidney measures 8.9 cm in maximum dimension. 9 LEFT KIDNEY: 3 cm cyst in the midpole. No imaging follow-up of renal cyst recommended. No hydronephrosis or renal calculi. The kidney measures 10.1 cm in maximum dimension. SPLEEN: Slightly enlarged. The spleen measures 13.6 cm in maximum dimension. . Numerous small hyperechoic areas in the spleen largest measuring 8 mm. These are similar to previous exam May 2020 and probably represent hemangiomas. There are 2 new splenic cysts seen. There is a 1 cm simple cyst and a 2 cm cyst with focus of wall calcification. FREE FLUID: None. US/US abdomen complete IMPRESSION: Cirrhotic-appearing liver. No focal liver lesion. Enlarged spleen. Stable echogenic splenic lesions probably representing small hemangiomas. 2 newly appreciated splenic cysts. Limited visualization of the pancreas.
== END 2023-03-30 07:48 | disposition home or self-care (01) ==
LOC: HO.US 07:47
PROVIDERS: PCP Family Medicine; Visit Provider Physician Assistant
DX: K74.60 Unspecified cirrhosis of liver (principal)
CPT/HCPCS: 76700

== ENCOUNTER → 2023-05-20 08:24 | Outpatient (BNVA) | payer OTHER, SELFPAY | PROVIDERS: Visit Provider Physician Assistant | DX: K74.60 Unspecified cirrhosis of liver (principal); E61.1 Iron deficiency; K21.9 Gastro-esophageal reflux disease without esophagitis; J45.909 Unspecified asthma, uncomplicated; Z79.899 Other long term (current) drug therapy | CPT/HCPCS: 99212 ==

== ENCOUNTER 2024-02-03 11:54 | Outpatient (AMB) | payer OTHER, SELFPAY ==
--- NOTE | 2024-02-03 12:00 | A.OFFVIS_ITS ---
Intake Vital Signs 02/03/24 12:01 Height 4 ft 11 in Weight 189 lb BMI 38.2 BP 174/82 H Blood Pressure Location Lt brachial Position Sitting Pulse 88 Intake Visit Reasons: 6 month follow up r/s from 01/05/24 Intake Note: Patient follow up Patient denies any GI issues. 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 Accompanied by: Self / Same As Patient Allergies ibuprofen [From Motrin] Allergy (Intermediate, Verified 02/03/24 12:00) Swelling acetaminophen [Tylenol] Adverse Reaction (Intermediate, Verified 02/03/24 12:00) nausea and vomiting naproxen [Aleve] Adverse Reaction (Intermediate, Verified 02/03/24 12:00) stomach upset Medication List - Last Reconciled 02/03/24 by Radha Carias PA-C albuterol sulfate 90 mcg/actuation 2 puffs inhalation Q6H PRN aspirin 81 mg PO DAILY atorvastatin 20 mg PO DAILY benztropine 0.5 mg PO BEDTIME bupropion HCl 75 mg PO QAM carvedilol 6.25 mg PO BID chlorthalidone 25 mg PO DAILY fluticasone propionate 110 mcg/actuation (Flovent HFA) 1 puff inhalation BID insulin aspart U-100 (Novolog PenFill U-100 Insulin aspart) 5 units subcut TIDAC insulin glargine (Lantus U-100 Insulin) 30 units subcut QPM levothyroxine 100 mcg PO DAILY loratadine (Allergy Relief (loratadine)) 10 mg PO DAILY losartan 100 mg PO DAILY melatonin 5 mg PO BEDTIME metformin 1,000 mg PO DAILY mirtazapine 45 mg PO BEDTIME omeprazole 20 mg PO DAILY semaglutide (Ozempic) 0.25 mg subcut QWEEK sertraline 100 mg PO DAILY ziprasidone HCl 80 mg PO BEDTIME ziprasidone HCl 20 mg PO BEDTIME HPI HPI Comments History of Present Illness Details A 63 y/o female -fatty liver, cirrhosis- f/u with me- former [facility] pt she has recently had labs at - Also hypertension- began amolodopine- she has felt a bit weak she thinks- her BP has improved-but that the medication is causing her symptoms Her appetite has been good her bowels are normal She is not drinking any alcohol no other unprescribed substances She is awaiting a vascular appointment Acid reflux omeprazole-last EGD 2011-no varicies Again-Reviewed ultrasound 04/11/2023 no lesion PFSH Medical History Acid reflux Asthma Bipolar disorder Cirrhosis COVID-19 vaccine series completed Depression Diabetes Elevated cholesterol Fatty liver Hepatitis C HTN (hypertension) Hypothyroid Iron deficiency Schizophrenia Sleep apnea Surgical History Hx of colonoscopy Hx of detached retina repair Hx of excision of mass History of esophagogastroduodenoscopy (EGD) H/O bariatric surgery History of cholecystectomy Family History Mother Diabetes COPD (chronic obstructive pulmonary disease) Heart disease Brother Stroke Father Cancer Social History Household Members: Children Are you a primary career counselor to a significant other at home: No 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) Alcohol intake: former Patient Tobacco Use Status: Former Tobacco user Quit Date: as teenager Tobacco use type: Cigarette Current occupational status: disabled Physical Exam Vital Signs: Last Vital Signs Pulse 88 02/03/24 12:01 BP 174/82 H 02/03/24 12:01 BMI result Body Mass Index 38.2 Assessment & Plan Assessment & Plan (1) Cirrhosis: Comment: abstain from alcohol, Continue to monitor every 6 months with labs and u/s Code(s): K74.60 - Unspecified cirrhosis of liver (2) Fatty liver: Code(s): K76.0 - Fatty (change of) liver, not elsewhere classified Plan: U/S Avoid etoh Plan Q 6 month-following Orders: Orders Comprehensive Met. Panel Today K74.60 - Unspecified cirrhosis of liver, K76.0 - Fatty (change of) liver, not elsewhere classified Alpha Fetoprotein Today K74.60 - Unspecified cirrhosis of liver, K76.0 - Fatty (change of) liver, not elsewhere classified US abdomen complete Today K74.60 - Unspecified cirrhosis of liver, K76.0 - Fatty (change of) liver, not elsewhere classified Complete Blood Count Auto Diff Today K74.60 - Unspecified cirrhosis of liver Thyroid Stimulating Hormone Today K74.60 - Unspecified cirrhosis of liver Patient Instructions: A 63 y/o female cirrhosis/ NAFLD- follows up. Abstain from etoh- L/S dietary changes- good wt, glucose and cholesterol control Up to date with endoscopy- Will update labs- plan of care dependent on above Will continue to assess Q 6 months Call with questions or concerns Coding Level of Care Code Est Pt Level 4 (83502) Diagnoses Cirrhosis K74.60 Fatty liver K76.0
[2024-02-03 12:01] VITALS: BP 174/82; PULSE 88; BMI 38.2
== END 2024-02-03 13:53 | disposition home or self-care (01) ==
PROVIDERS: PCP Family Medicine; Visit Provider Physician Assistant
DX: K74.60 Unspecified cirrhosis of liver (principal); K76.0 Fatty (change of) liver, not elsewhere classified
CPT/HCPCS: 99214

== ENCOUNTER → 2024-02-03 11:54 | Outpatient (BNVA) | payer OTHER, SELFPAY | PROVIDERS: PCP Family Medicine; Visit Provider Physician Assistant | DX: K74.60 Unspecified cirrhosis of liver (principal); K76.0 Fatty (change of) liver, not elsewhere classified | CPT/HCPCS: 99212 ==

== ENCOUNTER 2024-02-22 07:42 | Outpatient (REF) | payer OTHER, SELFPAY ==
--- NOTE | ~2024-02-22 | US_ITS ---
EXAMINATION: US ABDOMEN COMPLETE CLINICAL INFORMATION: Cirrhosis of the liver. COMPARISON: Ultrasound abdomen 03/30/2023. TECHNIQUE: Real-time imaging of the abdominal viscera. FINDINGS: PANCREAS: The pancreas appears unremarkable, without masses or ductal dilatation, with the exception of the tail which is obscured by bowel gas. ABDOMINAL AORTA: The proximal, mid, and distal segments are normal in caliber but demonstrates atherosclerotic plaque. INFERIOR VENA CAVA: Visualized portions are normal. LIVER: The liver is normal in size. Contour is minimally nodular with a coarse heterogeneous echotexture cirrhosis. No focal hepatic lesion. There is no intrahepatic biliary duct dilatation seen. GALLBLADDER: Surgically absent. COMMON BILE DUCT: Normal in caliber measuring 0.6 cm in diameter. RIGHT KIDNEY: Multiple benign Bosniak class I renal pelvic cysts are noted, the largest measuring 2.0 cm which require no additional imaging or follow-up. No solid renal masses are seen. No hydronephrosis. No renal calculi or focal parenchymal lesions. The kidney measures 10.2 cm in maximum dimension. LEFT KIDNEY: Multiple benign Bosniak class I parapelvic renal cysts are noted, the largest measuring about 3 cm, which require no additional imaging or follow-up. No solid renal masses are seen. No hydronephrosis. No renal calculi or focal parenchymal lesions. The kidney measures 9.6 cm in maximum dimension. SPLEEN: Spleen is enlarged measuring 13.6 cm. A calcified cyst is present in the spleen measuring 2.1 cm. Some small hyperechoic masses are seen under a centimeter in size, which could be hemangiomas and are unchanged. FREE FLUID: None. US/US abdomen complete IMPRESSION: 1. Cirrhotic appearing liver with splenomegaly. 2. Other incidental findings as described above.
[2024-02-22 09:04] LABS: MANUAL DIFF FLAG NO
[2024-02-22 09:49] LABS: Basophils Percent Auto 0.7 % (0-2); Eosinophils Absolute Auto 0.7 X10*3/uL (0.0-0.4); Eosinophils Percent Auto 11.4 % (0-4); Hemoglobin 12.2 g/dl (12.0-16.0); Imm Gran Abs Auto 0.01 X10*3/uL (0.00-0.03); Imm Gran Pct Auto 0.2 % (0.0-0.4); Lymphocytes Absolute Auto 1.3 X10*3/uL (1.2-4.9); Lymphocytes Percent Auto 20.6 % (20-40); Mean Corpuscular HGB Conc 31.3 g/dl (31.0-35.0); Mean Corpuscular Hemoglobin 24.4 pg (27.0-33.0); Mean Corpuscular Volume 78.2 fL (80.0-98.0); Monocytes Absolute Auto 0.5 X10*3/uL (0.1-1.2); Monocytes Percent Auto 7.4 % (2-11); Neutrophils Absolute Auto 3.6 x10*3/uL (2.0-8.3); Neutrophils Percent Auto 59.7 % (45-73); Platelet Count 133 X10*3/uL (160-400); Red Blood Count 4.99 X10*6/uL (4.20-5.50); Red Cell Distribution Width 16.6 % (11.0-16.0); White Blood Count 6.1 X10*3/uL (4.8-10.8)
[2024-02-22 10:18] LABS: Alanine Aminotransferase 9 U/L (0-31); Albumin Level 4.1 g/dL (3.5-5.0); Alkaline Phosphatase 75 U/L (39-117); Anion Gap 13 (12-20); Aspartate Amino Transferase 17 U/L (5-31); Bilirubin Total 0.4 mg/dL (0.0-1.0); Blood Urea Nitrogen 13 mg/dL (9-16); Calcium 9.7 mg/dL (8.4-10.2); Carbon Dioxide 25 mmol/L (22-29); Chloride 110 mmol/L (96-108); Estimated Glomerular Filt Rate 53; Glucose Random 98 mg/dL (60-115); Iron 54 mcg/dL (30-160); Percent Iron Saturation 15 % (15-50); Potassium 4.4 mmol/L (3.3-5.1); Sodium 144 mmol/L (135-145); Total Iron Binding Capacity 368 mcg/dL (228-428); Total Protein 7.3 g/dL (6.5-8.0); Unsaturated Iron Binding 314 ug/dL
[2024-02-22 10:43] LABS: Thyroid Stimulating Hormone 5.75 uIU/mL (0.32-4.0)
[2024-02-23 14:02] LABS: Alpha Fetoprotein 3.9 ng/mL
== END 2024-02-22 07:43 | disposition home or self-care (01) ==
LOC: HO.US 07:42
PROVIDERS: PCP Family Medicine; Visit Provider Physician Assistant
DX: K74.60 Unspecified cirrhosis of liver (principal); K76.0 Fatty (change of) liver, not elsewhere classified; K52.9 Noninfective gastroenteritis and colitis, unspecified
CPT/HCPCS: 36415; 76700; 80053; 82105; 83540; 84443; 85025

== ENCOUNTER 2024-12-19 08:19 | Outpatient (AMB) | payer OTHER, SELFPAY ==
--- NOTE | 2024-12-19 08:50 | MHC.OFFVIS ---
Vital Signs 12/19/24 08:57 Height 4 ft 11 in Weight 165 lb BMI 33.3 BP 124/75 Blood Pressure Location Lt brachial Position Sitting Pulse 81 Intake Visit Reasons: Cirrhosis/Radha pt Intake Note: Patient follow up for Cirrhosis, lab/abd US results. Patient was established with Radha ni was 02/03/2024. Denies any other GI issues. [employer]ap [employer] Architect Required: No Accompanied by: Self / Same As Patient Allergies ibuprofen [From Motrin] Allergy (Intermediate, Verified 12/19/24 08:48) Swelling acetaminophen [Tylenol] Adverse Reaction (Intermediate, Verified 12/19/24 08:48) nausea and vomiting naproxen [Aleve] Adverse Reaction (Intermediate, Verified 12/19/24 08:48) stomach upset HPI Comments Details: 64 y.o F with PMH of chronic hep C that has led to cirrhosis, pt reports svr > years, who is here for follow up. Pt reports remote IVDU that likely led to cirrhosis. Pt reports achieveing SVR after taking mavyret > 5 years ago. Reports abstinence from ivdu x 20 years. EtOH use x 3-4/year. Drinks 1-2 beers per session. Prev hx of hard liquor in her 20s. Also has metabolic risk factors: i) obesity- has lost almost 40 lbs in the past year. ii) DM - well controlled. [facility] Medical History Acid reflux Asthma Bipolar disorder Cirrhosis COVID-19 vaccine series completed Depression Diabetes Elevated cholesterol Fatty liver Hepatitis C HTN (hypertension) Hypothyroid Iron deficiency Schizophrenia Sleep apnea Surgical History Hx of colonoscopy Hx of detached retina repair Hx of excision of mass History of esophagogastroduodenoscopy (EGD) H/O bariatric surgery History of cholecystectomy Family History Mother Diabetes COPD (chronic obstructive pulmonary disease) Heart disease Brother Stroke Father Cancer Social History Household Members: Children Are you a primary intensive care unit nurse to a significant other at home: No Do you presently have visiting nurse or other home services: Yes ([employer]) Alcohol intake: former Patient Tobacco Use Status: Former Tobacco user Tobacco use type: Cigarette Current occupational status: disabled Review of Systems Const All systems reviewed & are unremarkable except as noted in HPI and below Physical Exam Vital Signs: Last Vital Signs Pulse 81 12/19/24 08:57 BP 124/75 12/19/24 08:57 BMI result Body Mass Index 33.3 No apparent distress Nonicteric Abdomen soft, nondistended, central obesity Alert and oriented x3, normal gait No asterixis Assessment & Plan Assessment & Plan (1) Cirrhosis: Code(s): K74.60 - Unspecified cirrhosis of liver Category: Medical Plan Likely secondary to chronic HCV + metALD. Overdue for HCC screening and variceal screening. Clinically compensated, will get updated MELD labs. Plan: - MELD labs - W/up for etiology of CLD ordered - AFP and US Abd - EGD to be booked - pt aware to HOLD ozempic x 1 week prior to egd - Hep serologies ordered for ? need for vaccination - Follow up after egd - nutrition to be addressed at that time Orders: Orders Alpha Fetoprotein Today K74.60 - Unspecified cirrhosis of liver Ceruloplasmin Today K74.60 - Unspecified cirrhosis of liver Comprehensive Met. Panel Today K74.60 - Unspecified cirrhosis of liver Gamma Glutamyl Transpeptidase Today K74.60 - Unspecified cirrhosis of liver Hepatitis A IgG Today K74.60 - Unspecified cirrhosis of liver Hepatitis B Core Antibody Today K74.60 - Unspecified cirrhosis of liver Hepatitis B Surface Antibody Today K74.60 - Unspecified cirrhosis of liver Hepatitis C Antibody Today K74.60 - Unspecified cirrhosis of liver HIV Ab/Ag Today K74.60 - Unspecified cirrhosis of liver Liver Kidney Microsomal Ab Today K74.60 - Unspecified cirrhosis of liver Mitochondrial Antibody Today K74.60 - Unspecified cirrhosis of liver Smooth Muscle Antibody Today K74.60 - Unspecified cirrhosis of liver HCV RNA QN PROG TO GENOTYPE Today K74.60 - Unspecified cirrhosis of liver Alpha 1 Anti-trypsin Today K74.60 - Unspecified cirrhosis of liver CHANTAL Reflex Titer and Pattern Today K74.60 - Unspecified cirrhosis of liver Complete Blood Count no Diff Today K74.60 - Unspecified cirrhosis of liver Ferritin Today K74.60 - Unspecified cirrhosis of liver Hepatitis B Surface Antigen Today K74.60 - Unspecified cirrhosis of liver Immunoglobulin G Today K74.60 - Unspecified cirrhosis of liver IRON PROFILE Today K74.60 - Unspecified cirrhosis of liver Prothrombin Time INR Today K74.60 - Unspecified cirrhosis of liver Phosphatidylethanol, Blood Today K74.60 - Unspecified cirrhosis of liver US abdomen complete Today K74.60 - Unspecified cirrhosis of liver Coding Level of Care Code Est Pt Level 4 (45876) Complex EM visit Add On G2211 Diagnoses Cirrhosis K74.60
[2024-12-19 08:57] VITALS: BP 124/75; PULSE 81; BMI 33.3
== END 2024-12-19 09:32 | disposition home or self-care (01) ==
PROVIDERS: PCP Family Medicine; Visit Provider Internal Medicine
DX: K74.60 Unspecified cirrhosis of liver (principal)
CPT/HCPCS: 99214; G2211

== ENCOUNTER → 2024-12-19 08:19 | Outpatient (BNVA) | payer OTHER, SELFPAY | PROVIDERS: PCP Family Medicine; Visit Provider Internal Medicine | DX: K74.60 Unspecified cirrhosis of liver (principal); Z86.19 Personal history of other infectious and parasitic diseases | CPT/HCPCS: 99212 ==

== ENCOUNTER 2025-01-13 07:43 | Outpatient (REF) | payer OTHER, SELFPAY ==
--- NOTE | ~2025-01-13 | US_ITS ---
CLINICAL HISTORY: K74.60 - Unspecified cirrhosis of liver US abdomen complete Comparison: None Findings: The visualized pancreas is normal. The aorta and inferior vena cava are normal caliber. Hepatic contour is nodular and echotexture is heterogeneous. There is no intrahepatic bile duct dilatation. The common duct is 5 mm in diameter. The gallbladder is surgically absent. The main portal vein is antegrade. The right kidney is 10.0 cm in length. Multiple right renal cysts, largest of which measures 20 mm within the interpolar kidney. The left kidney is 9.3 cm in length. Multiple left renal cysts, largest of which is in the interpolar kidney measuring 25 mm. Multiple splenic calcifications are present. No ascites. IMPRESSION: 1. No acute process. 2. Cirrhosis. This document has been electronically signed by: Ananda Ramirez MD on 01/13/2025 17:38:47
[2025-01-13 08:29] LABS: Basophils Percent Auto 0.8 % (0-2); Eosinophils Absolute Auto 0.2 X10*3/uL (0.0-0.4); Eosinophils Percent Auto 8.7 % (0-4); Hematocrit 36.5 % (37.0-47.0); Hemoglobin 11.6 g/dl (12.0-16.0); Imm Gran Abs Auto 0.01 X10*3/uL (0.00-0.03); Imm Gran Pct Auto 0.4 % (0.0-0.4); Lymphocytes Absolute Auto 0.7 X10*3/uL (1.2-4.9); Lymphocytes Percent Auto 27.7 % (20-40); MANUAL DIFF FLAG SCAN; Mean Corpuscular HGB Conc 31.8 g/dl (31.0-35.0); Mean Corpuscular Hemoglobin 25.2 pg (27.0-33.0); Mean Corpuscular Volume 79.3 fL (80.0-98.0); Mean Platelet Volume 9.8 fL (9.4-12.3); Monocytes Absolute Auto 0.3 X10*3/uL (0.1-1.2); Monocytes Percent Auto 12.4 % (2-11); Neutrophils Absolute Auto 1.2 x10*3/uL (2.0-8.3); Red Cell Distribution Width 14.6 % (11.0-16.0); SCAN SMEAR FLAG 1
[2025-01-13 08:50] LABS: White Blood Count 2.4 X10*3/uL (4.8-10.8)
[2025-01-13 08:51] LABS: Platelet Count 84 X10*3/uL (160-400)
[2025-01-13 09:05] LABS: Alanine Aminotransferase 10 U/L (0-31); Albumin Level 3.6 g/dL (3.5-5.0); Anion Gap 13 (12-20); Aspartate Amino Transferase 29 U/L (5-31); Bilirubin Total 0.4 mg/dL (0.0-1.0); Blood Urea Nitrogen 14 mg/dL (9-16); Calcium 9.1 mg/dL (8.4-10.2); Carbon Dioxide 26 mmol/L (22-29); Chloride 107 mmol/L (96-108); Estimated Glomerular Filt Rate 49; Glucose Random 128 mg/dL (60-115); Iron 25 mcg/dL (30-160); Percent Iron Saturation 8 % (15-50); Potassium 3.2 mmol/L (3.3-5.1); Sodium 143 mmol/L (135-145); Total Iron Binding Capacity 332 mcg/dL (228-428); Total Protein 7.3 g/dL (6.5-8.0); Unsaturated Iron Binding 307 ug/dL
[2025-01-13 09:06] LABS: Alanine Aminotransferase 9 U/L (0-31); Albumin Level 3.6 g/dL (3.5-5.0); Anion Gap 12 (12-20); Aspartate Amino Transferase 30 U/L (5-31); Bilirubin Total 0.3 mg/dL (0.0-1.0); Blood Urea Nitrogen 14 mg/dL (9-16); Calcium 9.1 mg/dL (8.4-10.2); Carbon Dioxide 27 mmol/L (22-29); Chloride 107 mmol/L (96-108); Estimated Glomerular Filt Rate 49; Gamma Glutamyl Transpeptidase 21 U/L (7-33); Glucose Random 129 mg/dL (60-115); Potassium 3.2 mmol/L (3.3-5.1); Sodium 143 mmol/L (135-145); Total Protein 7.2 g/dL (6.5-8.0)
[2025-01-13 09:20] LABS: Ferritin 42 ng/mL (10-250)
[2025-01-13 09:34] LABS: HBS Num1 75.61 mIU/mL (0-7.99); HBsAGNum1 0.29 S/CO (0.00-0.99); HIV AB/AG Nonreactive (Nonreactive); HIV Num 1 0.07 S/CO (0.00-0.99); Hepatitis A Antibody IgG REACTIVE (Nonreactive); Hepatitis B Surface Antigen Negative (Negative); ~HepC Num1 10.02 S/CO (0.00-0.79); ~Hepatitis A Antibody IgG 10.88 S/CO (0.00-0.99); ~Hepatitis B Surface Antibody REACTIVE (Nonreactive); ~Hepatitis C Antibody Reactive (Nonreactive)
[2025-01-13 09:37] LABS: SLIDE REVIEW VERIFIED
[2025-01-13 09:43] LABS: Alkaline Phosphatase 89 U/L (39-117)
[2025-01-13 11:46] LABS: HBc Num3 6.49 S/CO; Hepatitis B Core Antibody Reactive (Nonreactive)
[2025-01-14 19:47] LABS: HCV RNA PCR Qn <1.18 NOT DETECTED Log IU/mL (NOT DETECTED); HCV RNA PCR Qn <15 NOT DETECTED IU/mL (NOT DETECTED)
[2025-01-14 22:43] LABS: Immunoglobulin G 1269 mg/dL (600-1540)
[2025-01-15 02:54] LABS: Alpha 1 Anti-trypsin 145 mg/dL (83-199); Ceruloplasmin 35 mg/dL (14-48)
[2025-01-15 14:18] LABS: Anti Nuclear Antibody Screen NEGATIVE (NEGATIVE)
[2025-01-16 13:23] LABS: Alpha Fetoprotein 3.3 ng/mL; Alpha Fetoprotein 3.5 ng/mL
[2025-01-16 15:13] LABS: Mitochondrial Antibodies NEGATIVE (NEGATIVE)
[2025-01-18 05:14] LABS: Liver Kidney Microsomal Ab <=20.0 U (<=20.0)
[2025-01-18 09:13] LABS: Smooth Muscle Antibody <20 U (<20)
[2025-01-19 11:39] LABS: Phosphatidylethanol 16:0-18:1 NEGATIVE; Phosphatidylethanol 16:0-18:2 NEGATIVE
== END 2025-01-13 07:44 | disposition home or self-care (01) ==
LOC: HO.US 07:43
PROVIDERS: Physician Assistant; PCP Family Medicine; Visit Provider Internal Medicine
DX: K74.60 Unspecified cirrhosis of liver (principal); K58.9 Irritable bowel syndrome, unspecified
CPT/HCPCS: 36415; 76700; 80053; 80321; 82103; 82105; 82390; 82728; 82784; 82977; 83540; 85025; 85610; 86015; 86038; 86376; 86381; 86704; 86706; 86708; 86803; 87340; 87389; 87522

== ENCOUNTER → 2025-01-13 08:10 | Outpatient (BNV) | payer OTHER, SELFPAY | PROVIDERS: PCP Family Medicine; Visit Provider Radiology Diagnostic Radiology | DX: K74.60 Unspecified cirrhosis of liver (principal) | CPT/HCPCS: 76700 ==

== ENCOUNTER 2025-07-27 09:07 | Day surgery (SDC) | payer OTHER, SELFPAY ==
[2025-07-25 12:31] VITALS: BMI 33.3
--- NOTE | 2025-07-27 10:11 | MHC.SHP ---
Pre-Procedural Eval Section A - 24 Hr Update-Section A only Date of Service: 07/27/25 Section B - Complete if H&P > 30 days Chief Complaint: Unspecified cirrhosis of liver Details of Present Illness: Acid reflux Asthma Bipolar disorder Cirrhosis COVID-19 vaccine series completed Depression Diabetes Elevated cholesterol Fatty liver Hepatitis C HTN (hypertension) Hypothyroid Iron deficiency Schizophrenia Sleep apnea Surgical History Hx of colonoscopy Hx of detached retina repair Hx of excision of mass History of esophagogastroduodenoscopy (EGD) H/O bariatric surgery History of cholecystectomy Present Medications: see Short Stay Collaborative assessment Allergies: Allergies Allergy/AdvReac Type Severity Reaction Status Date / Time ibuprofen (From Motrin) Allergy Intermediate Swelling Verified 12/19/24 08:48 acetaminophen (Tylenol) AdvReac Intermediate nausea and Verified 12/19/24 08:48 vomiting naproxen (Aleve) AdvReac Intermediate stomach Verified 12/19/24 08:48 upset Review of Systems Review of Systems Comment: 10 point ROS negative Exam Exam Comment: Gen appear: No acute distress HEENT: no icterus Chest: No overt resp distress Abd: soft, nontender, nondistended Psych: Stable affect, answering questions appropriately Neuro: A/Ox3 noted to move all extremities spontaneously Ext: no peripheral edema Plan Diagnosis/Plan: Unchanged I have reviewed the history and physical and performed a pertinent physical examination on my patient. No changes have occurred unless specified. Time Spent With Patient Time: Total time managing care of this patient today ____ minutes.
[2025-07-27 10:20] VITALS: BP 113/64; PULSE 68; RESP 12; TEMP 36.6; O2SAT 96; BMI 33.5
[2025-07-27 10:20] LABS: Glucose, Whole Blood 92 mg/dL (60-115)
[2025-07-27] MEDS: Lactated Ringers 1,000 ML 100 ML IVCONT (10:24)
--- NOTE | 2025-07-27 10:31 | HO.ANESPROP2 ---
Documented by User: Nissa Reid NP 07/26/25 09:57 HPI - Anesthesia Eval Consult details Narrative: 65 yr old female for upper endoscopy with possible banding Hep C 2/2 IVDU (no use in 20 yrs), Liver cirrhosis: INR was 1.0 12/2024 KADY: unsure of CPAP status Type 2 DM: A1C 5.9% at 04/2025 PCP visit Anesthesia Pre-Procedure Meds Is the patient on any of the following meds?: GLP1/DPP4 PMFSH Active Problems Active Problems: All Active Problems (Updated 07/25/25 @ 12:25 by Silvia Bolton, MELVIN) Encounter for screening colonoscopy (Acute) Asthma (Acute) Iron deficiency (Acute) Acid reflux (Acute) HTN (hypertension) (Acute) Cirrhosis (Acute) Diabetes (Acute) Fatty liver (Acute) Past Medical History Medical History (Updated 07/25/25 @ 12:25 by Silvia Bolton RN) Hepatitis C Sleep apnea Schizophrenia Bipolar disorder Depression Asthma Elevated cholesterol Hypothyroid Iron deficiency Acid reflux HTN (hypertension) Cirrhosis Diabetes Fatty liver Family History Family History Mother Diabetes COPD (chronic obstructive pulmonary disease) Heart disease Brother Stroke Father Cancer Family history of problems with anesthesia: No Surgical History Surgical History Hx of colonoscopy Hx of detached retina repair Hx of excision of mass History of esophagogastroduodenoscopy (EGD) H/O bariatric surgery History of cholecystectomy History of Problems with Anesthesia: No Social History Social History Household Members: Children Are you a primary associate director career services to a significant other at home: No Do you presently have visiting nurse or other home services: No Alcohol intake: former Patient Tobacco Use Status: Former Tobacco user Tobacco use type: Cigarette Use of substances other than those prescribed or required for medical reasons: No Have you been hit, kicked, punched, or otherwise hurt by someone within the past year? If so, by whom?: No Are you DNR?: No Advance Directives: No Advance Directives Information Provided: Yes Patient : No Poor oral hygiene: Yes Current occupational status: disabled Meds Allergies Allergy/AdvReac Type Severity Reaction Status Date / Time ibuprofen (From Motrin) Allergy Intermediate Swelling Verified 12/19/24 08:48 acetaminophen (Tylenol) AdvReac Intermediate nausea and Verified 12/19/24 08:48 vomiting naproxen (Aleve) AdvReac Intermediate stomach Verified 12/19/24 08:48 upset Home Medications ?Medication ?Instructions ?Recorded ?Confirmed ?Last Taken ?Type aspirin 81 mg tablet,delayed 81 mg PO DAILY 09/18/20 07/25/25 09/29/21 History release atorvastatin 20 mg tablet 20 mg PO DAILY 09/18/20 07/25/25 Unknown History chlorthalidone 25 mg tablet 25 mg PO DAILY 09/18/20 07/25/25 Unknown History fluticasone propionate 110 1 puff inhalation BID 09/18/20 07/25/25 Unknown History mcg/actuation HFA aerosol inhaler (Flovent HFA) loratadine 10 mg tablet (Allergy 10 mg PO DAILY 09/18/20 07/25/25 Unknown History Relief (loratadine)) losartan 100 mg tablet 100 mg PO DAILY 09/18/20 07/25/25 10/01/21 History metformin 1,000 mg tablet 1,000 mg PO DAILY 09/18/20 07/25/25 Unknown History sertraline 100 mg tablet 100 mg PO DAILY 09/18/20 07/25/25 10/01/21 History omeprazole 20 mg capsule,delayed 20 mg PO DAILY 10/03/20 07/25/25 10/01/21 History release albuterol sulfate 90 mcg/actuation 2 puff inhalation Q6H PRN Wheezing 02/12/21 07/25/25 10/01/21 History aerosol inhaler benztropine 0.5 mg tablet 0.5 mg PO BEDTIME 02/12/21 07/25/25 Unknown History bupropion HCl 75 mg tablet 75 mg PO QAM 02/12/21 07/25/25 10/01/21 History insulin aspart U-100 100 unit/mL 5 unit subcut TIDAC 02/12/21 02/03/24 Unknown History subcutaneous cartridge (Novolog PenFill U-100 Insulin aspart) insulin glargine 100 unit/mL 30 unit subcut QPM 02/12/21 07/25/25 Unknown History subcutaneous solution (Lantus U-100 Insulin) melatonin 5 mg capsule 5 mg PO BEDTIME 02/12/21 07/25/25 Unknown History mirtazapine 45 mg tablet 45 mg PO BEDTIME 02/12/21 07/25/25 Unknown History ziprasidone HCl 20 mg capsule 20 mg PO BEDTIME 02/12/21 07/25/25 Unknown History ziprasidone HCl 80 mg capsule 80 mg PO BEDTIME 02/12/21 07/25/25 Unknown History levothyroxine 100 mcg tablet 100 mcg PO DAILY 06/30/22 07/25/25 Unknown History carvedilol 6.25 mg tablet 6.25 mg PO BID 02/03/24 07/25/25 Unknown History semaglutide 0.25 mg or 0.5 mg (2 0.25 mg subcut QWEEK 02/03/24 07/25/25 Unknown History mg/3 mL) subcutaneous pen injector (Ozempic) Exam Height,Weight and Vital Signs: Height 4 ft 11 in Weight 74.843 kg Assessment and Plan Final Anesthetic Review Family History of Problems with Anesthesia: No History of Problems with Anesthesia: No Documented by User: Susi Morgan DO 07/27/25 10:32 HPI - Anesthesia Eval Consult details Narrative: 65 yr old female for upper endoscopy with possible banding Hep C 2/2 IVDU (no use in 20 yrs), Liver cirrhosis: INR was 1.0 12/2024 KADY: not on CPAP Type 2 DM: A1C 5.9% at 04/2025 PCP visit Anesthesia Pre-Procedure Meds Is the patient on any of the following meds?: GLP1/DPP4 PMFSH Past Medical History Medical History (Updated 07/25/25 @ 12:25 by Silvia Bolton RN) Hepatitis C Sleep apnea Schizophrenia Bipolar disorder Depression Asthma Elevated cholesterol Hypothyroid Iron deficiency Acid reflux HTN (hypertension) Cirrhosis Diabetes Fatty liver Family History Family History Mother Diabetes COPD (chronic obstructive pulmonary disease) Heart disease Brother Stroke Father Cancer Family history of problems with anesthesia: No Surgical History Surgical History Hx of colonoscopy Hx of detached retina repair Hx of excision of mass History of esophagogastroduodenoscopy (EGD) H/O bariatric surgery History of cholecystectomy History of Problems with Anesthesia: No Social History Social History Household Members: Children Are you a primary associate director career services to a significant other at home: No Do you presently have visiting nurse or other home services: No Alcohol intake: former Patient Tobacco Use Status: Former Tobacco user Tobacco use type: Cigarette Use of substances other than those prescribed or required for medical reasons: No Have you been hit, kicked, punched, or otherwise hurt by someone within the past year? If so, by whom?: No Are you DNR?: No Advance Directives: No Advance Directives Information Provided: Yes Patient : No Poor oral hygiene: Yes Current occupational status: disabled Meds Allergies Allergy/AdvReac Type Severity Reaction Status Date / Time ibuprofen (From Motrin) Allergy Intermediate Swelling Verified 12/19/24 08:48 acetaminophen (Tylenol) AdvReac Intermediate nausea and Verified 12/19/24 08:48 vomiting naproxen (Aleve) AdvReac Intermediate stomach Verified 12/19/24 08:48 upset Home Medications ?Medication ?Instructions ?Recorded ?Confirmed ?Last Taken ?Type aspirin 81 mg tablet,delayed 81 mg PO DAILY 09/18/20 07/25/25 09/29/21 History release atorvastatin 20 mg tablet 20 mg PO DAILY 09/18/20 07/25/25 Unknown History chlorthalidone 25 mg tablet 25 mg PO DAILY 09/18/20 07/25/25 Unknown History fluticasone propionate 110 1 puff inhalation BID 09/18/20 07/25/25 Unknown History mcg/actuation HFA aerosol inhaler (Flovent HFA) loratadine 10 mg tablet (Allergy 10 mg PO DAILY 09/18/20 07/25/25 Unknown History Relief (loratadine)) losartan 100 mg tablet 100 mg PO DAILY 09/18/20 07/25/25 10/01/21 History metformin 1,000 mg tablet 1,000 mg PO DAILY 09/18/20 07/25/25 Unknown History sertraline 100 mg tablet 100 mg PO DAILY 09/18/20 07/25/2521 History omeprazole 20 mg capsule,delayed 20 mg PO DAILY 10/03/20 07/25/25 10/01/21 History release albuterol sulfate 90 mcg/actuation 2 puff inhalation Q6H PRN Wheezing 02/12/21 07/25/25 10/01/21 History aerosol inhaler benztropine 0.5 mg tablet 0.5 mg PO BEDTIME 02/12/21 07/25/25 Unknown History bupropion HCl 75 mg tablet 75 mg PO QAM 02/12/21 07/25/25 10/01/21 History insulin aspart U-100 100 unit/mL 5 unit subcut TIDAC 02/12/21 02/03/24 Unknown History subcutaneous cartridge (Novolog PenFill U-100 Insulin aspart) insulin glargine 100 unit/mL 30 unit subcut QPM 02/12/21 07/25/25 Unknown History subcutaneous solution (Lantus U-100 Insulin) melatonin 5 mg capsule 5 mg PO BEDTIME 02/12/21 07/25/25 Unknown History mirtazapine 45 mg tablet 45 mg PO BEDTIME 02/12/21 07/25/25 Unknown History ziprasidone HCl 20 mg capsule 20 mg PO BEDTIME 02/12/21 07/25/25 Unknown History ziprasidone HCl 80 mg capsule 80 mg PO BEDTIME 02/12/21 07/25/25 Unknown History levothyroxine 100 mcg tablet 100 mcg PO DAILY 06/30/22 07/25/25 Unknown History carvedilol 6.25 mg tablet 6.25 mg PO BID 02/03/24 07/25/25 Unknown History semaglutide 0.25 mg or 0.5 mg (2 0.25 mg subcut QWEEK 02/03/24 07/25/25 Unknown History mg/3 mL) subcutaneous pen injector (Ozempic) Exam Exam Date and Time: 07/27/25 1030 Height,Weight and Vital Signs: Height 4 ft 11 in Weight 74.843 kg Vital Signs Temperature 97.8 F 07/27/25 10:20 Pulse Rate 68 07/27/25 10:20 Respiratory Rate 12 07/27/25 10:20 Blood Pressure 113/64 07/27/25 10:20 Pulse Oximetry 96 07/27/25 10:20 Oxygen Delivery Method Room Air 07/27/25 10:20 Temperature 97.8 F 07/27/25 10:20 Pulse Rate 68 07/27/25 10:20 Respiratory Rate 12 07/27/25 10:20 Blood Pressure 113/64 07/27/25 10:20 Pulse Oximetry 96 07/27/25 10:20 Oxygen Delivery Method Room Air 07/27/25 10:20 Airway Mallampati Class: II TM Dist: >3cm Neck ROM: Full Denture: Upper Heart: S1S2 Lungs: CTAB Assessment and Plan Assessment Anesthesia Assessment: Anesthesia Plan Discussed and Chart Reviewed Final Anesthetic Review Family History of Problems with Anesthesia: No History of Problems with Anesthesia: No NPO: Yes ASA Class: III Final Preanesthetic Review: No Changes in Pt Med Stat, Meds/Allgs Chart Reviewed, Consent Obtained/Reviewed and Anes Risks/Benef Reviewed Patient Risk: Intermediate Procedure Risk: Low Anesthetic Plan Anesthetic Plan: MAC: and Agree w/ Assess. and Plan Disposition: Standard PACU
[2025-07-27 11:27] LABS: INTERNATIONAL NORM RATIO 1.0 (0.9-1.1); Prothrombin Time 12.0 SEC (10.9-12.4)
[2025-07-27 11:36] LABS: Hematocrit 41.7 % (37.0-47.0); Hemoglobin 13.8 g/dl (12.0-16.0); Mean Corpuscular HGB Conc 33.1 g/dl (31.0-35.0); Mean Corpuscular Hemoglobin 26.5 pg (27.0-33.0); Mean Corpuscular Volume 80.2 fL (80.0-98.0); NRBC Abs Auto 0.000 X10*3/uL (0.0-0.012); NRBC Pct Auto 0.0 /100WBC (0.0-0.2); Platelet Count 130 X10*3/uL (160-400); Red Blood Count 5.20 X10*6/uL (4.20-5.50); White Blood Count 6.4 X10*3/uL (4.8-10.8)
--- NOTE | 2025-07-27 12:28 | P.OP_ITS ---
Operative Note Operative Note Date of Service: 07/27/25 Narrative: Procedure: Esophagogastroduodenoscopy Endoscopist: Vanessa Haq MD Indication: Cirrhosis Anesthesia Provider: Maliha Conner CRNA Anesthesia Type: MAC EGD Procedure:?? The procedure, indications, preparation and potential complications were reviewed with the patient, who indicated understanding and gave written informed consent to proceed. A physical exam was performed. The endoscope was introduced through the mouth, and advanced to the second part of duodenum. The mucosa was carefully examined on slow withdrawal of the endoscope. The patient tolerated the procedure well. There were no immediate complications.? ? EGD Findings:? * Esophagus:? Normal mucosa noted in the entire esophagus. No esophageal varices were appreciated. * Stomach:? Stomach with food contents limiting visualization. Tubular appearance of the stomach was noted from prior history of sleeve gastrectomy. Retroflexion was not performed. * Duodenum:? Normal mucosa was noted in the whole of the examined duodenum. ? EGD Impressions:? * Normal esophagus * Food in stomach * Evidence of prior sleeve gastrectomy * Normal duodenum (biopsy) ?? Recommendations:?? * No esophageal varices appreciated on exam today. * We recommend repeat upper endoscopy in 1 year. Above has been reviewed with the patient.
[2025-07-27 12:31] VITALS: BP 111/70; PULSE 67; RESP 16; TEMP 36.1; O2SAT 97
[2025-07-27 12:43] VITALS: BP 126/75; PULSE 70; RESP 16; O2SAT 95
[2025-07-27 12:50] VITALS: BP 128/70; PULSE 77; RESP 18; TEMP 36.2; O2SAT 98
--- NOTE | 2025-07-27 13:58 | PC.NURSE ---
DC ORDER WAS NOT IN COMPUTER PRIOR TO PATIENT LEAVING. PATIENT WANTED TO LEAVE. PATIENT GIVEN DC INSTRU[employer] AND COMPUTER PORTION WAS MAILED TO PATIENT.
== END 2025-07-27 13:25 | disposition home or self-care (01) ==
PROVIDERS: Nurse Practitioner; Visit Provider Internal Medicine
PROC: 0DJ08ZZ Inspection of Upper Intestinal Tract, Via Natural or Artificial Opening Endoscopic (ICD-10-PCS; CPT 43235; principal; 2025-07-27 11:00)
DX: K74.69 Other cirrhosis of liver (principal); B18.2 Chronic viral hepatitis C; T18.2XXA Foreign body in stomach, initial encounter; W44.F3XA Food entering into or through a natural orifice, initial encounter; E11.9 Type 2 diabetes mellitus without complications; I10 Essential (primary) hypertension; E78.00 Pure hypercholesterolemia, unspecified; J45.909 Unspecified asthma, uncomplicated; G47.30 Sleep apnea, unspecified; E03.9 Hypothyroidism, unspecified; Z98.84 Bariatric surgery status; Z87.891 Personal history of nicotine dependence; Z79.899 Other long term (current) drug therapy; Z79.84 Long term (current) use of oral hypoglycemic drugs; Z79.82 Long term (current) use of aspirin; Z79.02 Long term (current) use of antithrombotics/antiplatelets; Z79.4 Long term (current) use of insulin
CPT/HCPCS: 43235; 36415; 82947; 85027; 85610; J2003; J2704; J3010

== ENCOUNTER → 2025-07-27 09:07 | Outpatient (BNV) | payer OTHER, SELFPAY | PROVIDERS: Visit Provider Internal Medicine | DX: K74.60 Unspecified cirrhosis of liver (principal); Z90.3 Acquired absence of stomach [part of]; Z98.84 Bariatric surgery status; Z91.199 Patient's noncompliance with other medical treatment and regimen due to unspecified reason | CPT/HCPCS: 43239 ==